=== PATIENT | female | born 2000 | race Two or more races ===

== ENCOUNTER 2020-07-05 18:36 | Emergency (ER) | payer MEDICAID, SELFPAY ==
--- NOTE | ~2020-07-05 | XR_ITS ---
EXAMINATION: XR HAND, RIGHT CLINICAL INFORMATION: Right hand pain after punching. COMPARISON: None TECHNIQUE: PA, lateral, and oblique views of the right hand. FINDINGS: No displaced fracture. No dislocation. Normal carpal alignment. No joint space narrowing or marginal osteophytes. No osseous erosion. No abnormal soft tissue calcification. XR/XR hand RT min 3V IMPRESSION: No displaced fracture.
[2020-07-05 18:52] VITALS: BP 109/70; PULSE 90; RESP 16; TEMP 37.3; O2SAT 100; BMI 25.8
--- NOTE | 2020-07-05 19:32 | ED_ITS ---
HPI - Extremity Injury (Upper) General Chief Complaint: Wound/Laceration Stated Complaint: hand lac Time Seen by Provider: 07/05/20 19:02 Source: patient Mode of arrival: ambulatory History of Present Illness HPI narrative: Punch manner are frustration resulting in pain to the dorsum of the hand and states abrasion/laceration to the palmar aspect. Unsure of last tetanus vaccination. complaint: injury to: right Onset (ago): minute(s) Other Extremity Injury: right: hand Handedness: right Place: home Severity: mild Severity scale (1-10): 5 Relieving factors: rest Context: direct blow and laceration Associated symptoms: denies other symptoms Treatments prior to arrival: bandage Related Data Allergies Allergy/AdvReac Type Severity Reaction Status Date / Time No Known Allergies Allergy Verified 07/05/20 19:07 [No Known Allergies*] Review of Systems Review of Systems: Constitutional: No Weight loss, No Fever, No Chills, No Night Sweats, No Fatigue, No Malaise ENT/Mouth: No Hearing loss, No Ear Pain, No Nasal Congestion, No Sinus Pain, No Hoarseness, No sore throat, No Rhinorrhea, No Swallowing Difficulty Eyes: Negative Cardiovascular: Negative Respiratory: Negative Gastrointestinal: Negative Genitourinary: Negative Musculoskeletal: No joint pain, No Myalgias, No Joint Swelling , as noted per HPI Skin: No Skin Lesions, No rash Neuro: No Weakness, No Numbness, No Paresthesias, No Loss of Consciousness, No Dizziness, No Headache Psych: No Social Issues Heme/Lymph: No Bruising, No Bleeding,No Lymphadenopathy Endocrine: Negative [facility] Past Medical History Medical History No known health problems Social History Social History Smoking Status: Never smoker Use of substances other than those prescribed or required for medical reasons: Yes Substance Use Type: Marijuana Advance Directives: No Advance Directives Information Provided: No Physical Exam Vital Signs: Vital Signs: Last Vital Signs Temp 99.1 F 07/05/20 18:52 Pulse 90 07/05/20 18:52 Resp 16 07/05/20 18:52 BP 109/70 07/05/20 18:52 Pulse Ox 100 07/05/20 18:52 Body Mass Index 25.8 Reviewed Const: General: cooperative and healthy appearing; No acute distress or intoxicated appearing Nutritional Appearance: average body habitus Orientation/consciousness: patient oriented x3 HENMT: Head: Yes normal to inspection Ears: hearing grossly normal bilaterally Eyes: General: appearance normal, both eyes and all related structures Visual Salcido: normal visual salcido by confrontation Resp: Effort & Inspection: normal respiratory effort Auscultation: clear to auscultation bilaterally Cardio: Jugular venous distension: no JVD Rhythm: regular rhythm Heart sounds: S1 normal heart sound present and S2 normal heart sound present GI: Inspection: Yes normal to inspection : General: Yes no CVA tenderness Back/Spine/Pelvis: Back: no CVA tenderness Skin: General skin exam: no rashes or lesions noted Neuro: General: patient oriented x3 Extrem: General: Yes normal to inspection Hand/finger images: 1. 0.5 cm superficial appearing abrasion like injury. No deep laceration or repairable area. Full range of motion able to make a fist h owever reports she has pain on the dorsum of the hand along the distal aspect of the 5th metacarpal. Otherwise neurovascular intact. Course Course Course Narrative: Given tetanus vaccination, Dermabond for abrasion after thoroughly being clean. X-ray without evidence of fracture will discharge home with supportive care, return, follow-up instructions. Comfortable plan. Stable for discharge. Discharge Plan Discharge Clinical Impression: Abrasion, Contusion of hand Patient Disposition: Home, Self-Care Instructions: Contusion in Adults (ED), Abrasion (ED), Diphtheria/Acellular Pertussis/Tetanus Booster Vaccine (Tdap) (By... Additional Instructions: Allow the skin glue to follow-up by self Your x-ray did not show any evidence of bone fracture There is no evidence of any foreign body Keep site clean and dry Cold compress Tylenol Motrin as needed for pain discomfort Return if any concerns or worsening symptoms otherwise follow up with her primary care doctor as discussed Thank you Referrals: Rachel Castillo DO [Primary Care Provider] - 1 week
== END 2020-07-05 20:09 | disposition home or self-care (01) ==
PROVIDERS: Emergency Provider Internal Medicine; PCP Pediatrics
DX: S60.511A Abrasion of right hand, initial encounter (principal); S60.221A Contusion of right hand, initial encounter; W22.09XA Striking against other stationary object, initial encounter; F12.90 Cannabis use, unspecified, uncomplicated; Y93.89 Activity, other specified; Y92.019 Unspecified place in single-family (private) house as the place of occurrence of the external cause; Y99.9 Unspecified external cause status
CPT/HCPCS: 12001; 73130; 90471; 90715; 99284

== ENCOUNTER 2020-11-18 09:02 | Emergency (ER) | payer MEDICAID, SELFPAY ==
[2020-11-18 09:37] VITALS: BP 114/77; PULSE 72; RESP 18; TEMP 37; O2SAT 99; BMI 25.7
--- NOTE | 2020-11-18 12:11 | ED_ITS ---
HPI - General Adult General Chief complaint: General Medical Stated complaint: rt breast pain Time Seen by Provider: 11/18/20 10:44 Source: patient Mode of arrival: ambulatory History of Present Illness HPI narrative: 19-year-old female with no significant past medical history presented to ED complaining of right-sided breast lumps x a couple days. Reports areas are painful. Denies nipple drainage, skin changes, erythema, fever. LMP October 30. Onset (ago): day(s) Related Data Allergies Allergy/AdvReac Type Severity Reaction Status Date / Time No Known Allergies Allergy Verified 07/05/20 19:07 [No Known Allergies*] Review of Systems Review of Systems: Constitutional: No Fever, No Chills Cardiovascular: No Chest Pain, No SOB Respiratory: No Cough Breast: + painful lumps, no discharge, no skin changes Gastrointestinal: No Nausea, No Vomiting, No Abdominal pain Musculoskeletal: No joint pain, No Myalgias, No Joint Swelling Skin: No Skin Lesions, No rash Yes all other systems are reviewed and are negative PMFSH Past Medical History Attestation statement: The following information was validated with the patient. Medical History No known health problems Social History Social History Substance Use Type: Marijuana Advance Directives: No Advance Directives Information Provided: No Patient : No Physical Exam Vital Signs: Vital Signs: Last Vital Signs Temp 98.6 F 11/18/20 09:37 Pulse 72 11/18/20 09:37 Resp 18 11/18/20 09:37 BP 114/77 11/18/20 09:37 Pulse Ox 99 11/18/20 09:37 Body Mass Index 25.7 Const: General: cooperative and healthy appearing Orientation/consciousness: patient oriented x3 Limitations: no limitations HENMT: Head: Yes normal to inspection Ears: hearing grossly normal bilaterally General nose exam: Normal external nose present Face and sinus: Yes normal facial exam Eyes: General: appearance normal, both eyes and all related structures EOM: EOMs intact bilaterally Neck: Neck: Yes normal visual inspection Chest: Other: Right breast: + small mobile hard breast lump at 1o'clock region and beneath nipple. +ttp. No fluctuance or induration No skin changes, no nipple discharge, no erythema/cellulitis, no appreciable lymphadenopathy Chest palpation & inspection: no crepitus and tenderness Breast/axilla inspection: normal inspection of the breasts Breast/axilla p alpation: no axillary lymphadenopathy Resp: Effort & Inspection: normal respiratory effort and no respiratory distress Cardio: Rate: regular rate Skin: Rashes: no rashes Wounds: no wounds Neuro: General: patient oriented x3 Gait exam (Neuro): Normal gait present Extrem: General: Yes normal to inspection Medical Decision Making MDM Narrative Medical decision making narrative: 19-year-old female with no significant past medical history presented to ED complaining of right-sided breast lumps x a couple days. On exam vital signs stable, NAD/well-appearing, physical exam as above. Concern for fibroadenoma vs cyst. Low concern for abscess. Rule out Discussed with patient she needs outpatient ultrasound or MRI/OBGYN follow-up Lab Data Labs: Lab Results 11/18/20 Range/Units 12:08 Urine Test NEGATIVE (NEGATIVE) Discharge Plan Discharge Clinical Impression: Breast lump Patient Disposition: Home, Self-Care Instructions: Breast Mass (ED) Additional Instructions: Your test was negative today in the ED It is important for you to follow-up with a OBGYN/establish care with an OBGYN You likely need a breast ultrasound Call the monitor and storage bin tender to make a appointment If her symptoms persist or worsen, lungs are growing, you have skin changes, redness, drainage from the nipple, fever please return to the ED Referrals: Matthew James MD [Physician] - 2 days Stand Alone Forms: Work/School Release
[2020-11-18 12:22] LABS: UPreg QC Valid YES; Urine Pregnancy NEGATIVE (NEGATIVE)
== END 2020-11-18 12:51 | disposition home or self-care (01) ==
PROVIDERS: Physician Assistant; Emergency Provider Emergency Medicine
DX: N64.4 Mastodynia (principal)
CPT/HCPCS: 81025; 99283

== ENCOUNTER 2020-11-27 14:46 | Outpatient (REF) | payer MEDICAID, SELFPAY ==
--- NOTE | ~2020-11-27 | US_ITS ---
EXAMINATION: US DIAGNOSTIC ULTRASOUND BREAST, RIGHT CLINICAL INFORMATION: Right breast lumps 1 o'clock and 8 o'clock locations. COMPARISON: None. TECHNIQUE: Ultrasound of the breast is performed with real-time tenorio-scale imaging and color Doppler. FINDINGS: A single lesion is identified at the 2 o'clock position, 12 cm from nipple, measuring approximately 2.6 x 1.6 x 2.1 cm in size. It is well circumscribed and hypoechoic with some mild posterior distal sound enhancement and no internal vascularity. This has the appearance of a fibroadenoma. Recommend ultrasound-guided biopsy. The above was discussed with the patient at time of study. The [facility] linen attendant called the referring provider's office with the above recommendation. US/US breast RT limited IMPRESSION: Right breast probable fibroadenoma for which ultrasound-guided biopsy is recommended. ASSESSMENT: BI-RADS 4: Suspicious (subcategory 4A: Low suspicion for malignancy). RECOMMENDATION: Ultrasound-guided right breast biopsy.
== END 2020-11-27 14:47 | disposition home or self-care (01) ==
LOC: HO.MAMMO 14:46
PROVIDERS: Visit Provider Registered Nurse
DX: N63.12 Unspecified lump in the right breast, upper inner quadrant (principal); N63.13 Unspecified lump in the right breast, lower outer quadrant
CPT/HCPCS: 76642

== ENCOUNTER 2020-12-09 09:46 | Outpatient (REF) | payer MEDICAID, SELFPAY ==
--- NOTE | ~2020-12-09 | US_ITS ---
EXAMINATION: ULTRASOUND GUIDED CORE BIOPSY BREAST, RIGHT POST PROCEDURE DIGITAL MAMMOGRAM, RIGHT CLINICAL INFORMATION: 20-year-old with circumscribed dominant mass 2:00 right breast 12 cm from nipple, both fibroadenoma. COMPARISON: Targeted right breast ultrasound 11/27/2020. FINDINGS: Proper informed consent is obtained from the patient after discussion of the procedure, potential risks and complications, and alternatives. Patient was given an opportunity for questions. The patient appeared to understand. The patient consented to the procedure and signed the consent form. GUIDANCE: Ultrasound-guided; aseptic technique. LESION: Circumscribed mass 3:00 right breast 12 cm from nipple measuring 2.6 cm, probable fibroadenoma. APPROACH: Oblique caudal cranial. ANESTHESIA: 10 mL 1% lidocaine. DERMATOTOMY: Single skin olga dermatotomy performed. NEEDLE: 14-gauge Achieve core biopsy device with 13.5-gauge co-axial guide needle. CORES: 5. CLIP: HydroMARK; shape: butterfly. The blunting of the clip marker is visualized during real-time ultrasound, placed within the mass. Postprocedure mammography not performed in this 20-year-old. The patient tolerated the procedure well. No immediate complications. Home instructions reviewed with the patient. Final pathology results are pending. US/US breast ndl core biopsy RT IMPRESSION: 1. Status post ultrasound-guided core biopsy right breast. 2. Clip placed: HydroMARK; shape: butterfly. 3. Pathology pending. An addendum report will be issued.
== END 2020-12-09 09:47 | disposition home or self-care (01) ==
LOC: HO.MAMMO 09:46
PROVIDERS: Visit Provider Surgery
DX: R92.8 Other abnormal and inconclusive findings on diagnostic imaging of breast (principal); N63.12 Unspecified lump in the right breast, upper inner quadrant
CPT/HCPCS: 19083; 88305; 99202

== ENCOUNTER → 2020-12-12 08:46 | Outpatient (BNVA) | payer MEDICAID, SELFPAY | PROVIDERS: PCP Registered Nurse; Referring Provider Registered Nurse; Visit Provider Surgery | DX: D24.1 Benign neoplasm of right breast (principal) | CPT/HCPCS: 99212 ==

== ENCOUNTER 2021-01-06 08:20 | Outpatient (REF) | payer MEDICAID, SELFPAY ==
[2021-01-06 10:50] LABS: HCG Quantitative 97837 mIU/mL
== END 2021-01-06 08:21 | disposition home or self-care (01) ==
LOC: HO.LAB 08:20
PROVIDERS: PCP Registered Nurse; Visit Provider Advanced Practice Midwife
DX: N92.6 Irregular menstruation, unspecified (principal); R11.2 Nausea with vomiting, unspecified
CPT/HCPCS: 36415; 81025; 84702; 99202

== ENCOUNTER 2021-01-16 08:15 | Outpatient (REF) | payer MEDICAID, SELFPAY ==
--- NOTE | ~2021-01-16 | US_ITS ---
EXAMINATION: OBSTETRICAL ULTRASOUND, FIRST TRIMESTER HISTORY: A 20-year-old at 12.6 weeks of gestation NT screening COMPARISON: 12/09/2020 TECHNIQUE: Real time transabdominal imaging with color and M-mode Doppler. FINDINGS: A single, live IUP CRL of 46.9 mm c/w 11.4wks is noted. Heart Rate: 167 beats per minute. Normal yolk sac seen. NT was 1.22.mm. NB Present The embryo appears sonographically wnl for this GA. Both maternal ovaries are seen and appear normal. GESTATIONAL AGE: 1. Established GA: 12.6 wks 2. GA from AUA: 11.4 wks ESTIMATED DATE OF DELIVERY: 1. Established TERRY: 07/25/2021 2. TERRY from AUA: 08/03/2021 US/US OB 1T nuc measure IMPRESSION: 1. A single live IUP 2. Size less than dates, CRL is consistent with 11.4 weeks of gestation. 3. Adjust TERRY to 08/03/2021 based on today's examination 4. Normal NT MFM Consultation: I advised her that the best TERRY appears to be 08/03/2021 based on today's examination. I reviewed the ultrasound findings along with significance of NT measurement. The NT of less than 3mm is generally reassuring. However, the sensitivity for T21 detection is only 60%. I reviewed the availability of serum aneuploidy screening which includes cell-free DNA and placental protein based tests. I discussed the sensitivity, false-positive rate, and other limitations associated with each test. I also reviewed the availability of invasive diagnostic tests that are associated small but definite risk of miscarriage. We also reviewed the differences between screening tests and diagnostic tests. After our discussion, she opted for the First trimester screening that is based on cell-free DNA or non-invasive testing (NIPT). The result will be faxed to your office in approximately 7 days. A follow up at 18 weeks for survey has been scheduled. Thank you very much for this referral. Total time 30 minutes. The time spent was devoted to counseling the patient about the disease and diagnosis, coordinating care including reviewing her records, pertinent lab data and studies, as well as discussing diagnostic evaluation and workup, plan therapeutic interventions and future disposition of care. This includes any additional research needed to obtain further information in formulating the plan of care of this patient. This note was generated with a voice recognition program. Please excuse any errors which may have been overlooked during my review of this note. Sometimes these errors may affect the content or meaning of a given sentence.
== END 2021-01-16 08:16 | disposition home or self-care (01) ==
LOC: HO.US 08:15
PROVIDERS: PCP Registered Nurse; Visit Provider Advanced Practice Midwife
DX: N92.6 Irregular menstruation, unspecified (principal)
CPT/HCPCS: 76813

== ENCOUNTER → 2021-01-22 09:49 | Outpatient (BNVA) | payer MEDICAID, SELFPAY | PROVIDERS: PCP Registered Nurse; Visit Provider Advanced Practice Midwife | DX: O26.891 Other specified pregnancy related conditions, first trimester (principal); D24.1 Benign neoplasm of right breast; O99.321 Drug use complicating pregnancy, first trimester; F12.20 Cannabis dependence, uncomplicated; Z3A.12 12 weeks gestation of pregnancy; Z79.899 Other long term (current) drug therapy | CPT/HCPCS: 99212 ==

== ENCOUNTER 2021-02-05 10:48 | Outpatient (REF) | payer MEDICAID, SELFPAY ==
[2021-02-05 11:53] LABS: Hemoglobin 10.8 g/dl (12.0-16.0); Mean Corpuscular HGB Conc 33.8 g/dl (31.0-35.0); Mean Corpuscular Hemoglobin 28.3 pg (27.0-33.0); Mean Corpuscular Volume 83.8 fL (80-98); Mean Platelet Volume 9.5 fL (9.4-12.3); Platelet Count 271 X10*3/uL (160-400); Red Blood Count 3.82 X10*6/uL (4.20-5.50); Red Cell Distribution Width 12.6 % (11.0-16.0); White Blood Count 9.5 X10*3/uL (4.8-10.8)
[2021-02-05 12:32] LABS: HIV AB/AG Nonreactive (Nonreactive); HIV Num 1 0.06 S/CO (0.00-0.99); ~HepC Num1 0.05 S/CO (0.00-0.79); ~Hepatitis C Antibody Nonreactive (Nonreactive)
[2021-02-05 12:34] LABS: HBsAGNum1 0.11 S/CO (0.00-0.99); Hepatitis B Surface Antigen Negative (Negative)
[2021-02-05 12:45] LABS: Amphetamine Screen Urine Not Detected (Not Detect); Barbiturates, Urine Not Detected (Not Detect); Benzodiazepines Screen Urine Not Detected (Not Detect); Cannabinoid Screen Urine Not Detected (Not Detect); Cocaine Screen Urine Not Detected (Not Detect); Fentanyl, urine Not Detected (Not Detect); Opiate Screen Urine Not Detected (Not Detect); Phencyclidine Screen Urine Not Detected (Not Detect)
[2021-02-05 13:15] LABS: Sickle Cell Scr NEGATIVE (NEGATIVE)
[2021-02-06 04:06] LABS: Syphilis Screen Nonreactive (Nonreactive)
[2021-02-06 08:26] LABS: Rubella IgG Antibody 3.75 Index; Varicella IgG Antibody <135.00 index
== END 2021-02-05 10:49 | disposition home or self-care (01) ==
LOC: HO.LAB 10:48
PROVIDERS: PCP Registered Nurse; Visit Provider Advanced Practice Midwife
DX: Z34.90 Encounter for supervision of normal pregnancy, unspecified, unspecified trimester (principal)
CPT/HCPCS: 80307; 85027; 85660; 86762; 86780; 86787; 86803; 86850; 86900; 86901; 87086; 87340; 87389

== ENCOUNTER 2021-02-10 11:27 | Outpatient (REF) | payer MEDICAID, SELFPAY ==
[2021-02-11 13:18] LABS: BV Int Neg Control Negative (Negative); BV Int Pos Control Positive (Positive)
[2021-02-11 13:56] LABS: CT PCR NOT DETECTED (Not Detect.); NG PCR NOT DETECTED (Not Detect.)
== END 2021-02-10 11:28 | disposition home or self-care (01) ==
LOC: HO.LAB 11:27
PROVIDERS: Visit Provider Advanced Practice Midwife
DX: O26.892 Other specified pregnancy related conditions, second trimester (principal); D24.1 Benign neoplasm of right breast; Z3A.15 15 weeks gestation of pregnancy
CPT/HCPCS: 87480; 87491; 87510; 87591; 87660; 88142; 99212

== ENCOUNTER 2021-03-06 08:38 | Outpatient (REF) | payer MEDICAID, SELFPAY ==
--- NOTE | ~2021-03-06 | US_ITS ---
EXAMINATION: US OBSTETRICAL CLINICAL INFORMATION: A 20-year-old at 18.4 weeks of gestation Screening for anomaly COMPARISON: 01/16/2021 TECHNIQUE: Real-time transabdominal ultrasound was performed using C1-5 megahertz transducer. FINDINGS: A single, active, fetus is seen in breech presentation. The placenta is anterior without previa, and the amniotic fluid volume is wnl. MEASUREMENTS: 1. Biparietal Diameter: 4.0 cm; 18.2 wks 2. Occipital Frontal Diameter: 5.3 cm 3. Head Circumference: 15.2 cm; 18.2 wks 4. Abdominal Circumference: 13.4 cm; 19.0 wks 5. Femur Length: 2.8 cm; 18.4 wks 6. Humerus Length: 2.7 cm; 18.4 wks 7. Tibia Length: 2.2 cm; 18.0 wks 8. Lateral ventricle: 0.6 cm 9. Cerebellum: 1.9 cm; 19.3 wks 10. Cisterna Magna: 0.3 cm 11. Nuchal Fold: 3.5 mm 12. Heart Rate: 158 beats per minute Rt ovary: normal Lt ovary: normal Cervical length 4.0 cm on T/A. GESTATIONAL AGE: 1. Established GA: 18.4 wks 2. GA from AUA: 18.4 wks ESTIMATED DATE OF DELIVERY: 1. Established TERRY: 08/03/2021 2. TERRY from AUA: 08/03/2021 ANATOMY: The visualized anatomy includes but not limited to: 1. Cranium: Normal 2. Intracranial anatomy: cavum septum pellucidi, lateral ventricles, choroid plexus, cerebellum, posterior fossa, third and fourth ventricles. 3. face: orbits, lip/palate, profile, nasal bone 4. Heart: four-chamber view of the heart, ventricular septum, foramen ovale, pulmonary vein, left and right outflow tracts, three-vessel view, 3 vessel trachea view, aortic and ductal arches, situs.. 5. Diaphragm: Normal 6. Abdominal wall: Normal 7. Cord Insertion: Normal 8. Spine: Cervical, thoracic, lumbar, sacral. 9. Stomach: Normal size and shape 10. Right Kidney: Normal 11. Left Kidney: Normal 12. 3 vessel cord: Normal 13. Upper extremity: Open hands, fifth digit. 14. Lower extremity: Tibia, fibula, bilateral feet. 15. Bladder: Normal 16. Genitalia: Male, patient aware US/US OB /maternal detail IMPRESSION: 1. Single, living, intrauterine with appropriate biometry. 2. Normal survey DISCUSSION: I reviewed today's ultrasound findings. We discussed the limitations of ultrasound in diagnosing aneuploidy and other congenital abnormalities. I reviewed the differences between screening test and diagnostic test. Amniocentesis was discussed and declined. She was informed that the baseline incidence of congenital abnormalities is approximately 3-5%. Not all these conditions are diagnosable in utero. RECOMMENDATIONS: 1. Follow-up when necessary Thank you for allowing me to participate in her care. Total time 20 minutes. The time spent was devoted to counseling the patient about the disease and diagnosis, coordinating care including reviewing her records, pertinent lab data and studies, as well as discussing diagnostic evaluation and workup, plan therapeutic interventions and future disposition of care. This includes any additional research needed to obtain further information in formulating the plan of care of this patient. This note was generated with a voice recognition program. Please excuse any errors which may have been overlooked during my review of this note. Sometimes these errors may affect the content or meaning of a given sentence.
== END 2021-03-06 08:39 | disposition home or self-care (01) ==
LOC: HO.US 08:38
PROVIDERS: Visit Provider Advanced Practice Midwife
DX: O35.9XX0 Maternal care for (suspected) fetal abnormality and damage, unspecified, not applicable or unspecified (principal); Z3A.18 18 weeks gestation of pregnancy
CPT/HCPCS: 76811

== ENCOUNTER → 2021-03-10 09:17 | Outpatient (BNVA) | payer MEDICAID, SELFPAY | PROVIDERS: Visit Provider Advanced Practice Midwife | DX: O99.012 Anemia complicating pregnancy, second trimester (principal); O26.892 Other specified pregnancy related conditions, second trimester; Z3A.19 19 weeks gestation of pregnancy; Z67.91 Unspecified blood type, Rh negative | CPT/HCPCS: 81003; 99212 ==

== ENCOUNTER → 2021-04-07 08:51 | Outpatient (BNVA) | payer MEDICAID, SELFPAY | PROVIDERS: Visit Provider Advanced Practice Midwife | DX: O99.012 Anemia complicating pregnancy, second trimester (principal); O26.892 Other specified pregnancy related conditions, second trimester; Z3A.23 23 weeks gestation of pregnancy | CPT/HCPCS: 81003; 99212 ==

== ENCOUNTER → 2021-05-05 09:21 | Outpatient (BNVA) | payer MEDICAID, SELFPAY | PROVIDERS: Visit Provider Advanced Practice Midwife | DX: O26.892 Other specified pregnancy related conditions, second trimester (principal); Z67.91 Unspecified blood type, Rh negative; O99.012 Anemia complicating pregnancy, second trimester; Z3A.27 27 weeks gestation of pregnancy | CPT/HCPCS: 81003; 99212 ==

== ENCOUNTER 2021-05-06 08:50 | Outpatient (REF) | payer MEDICAID, SELFPAY ==
[2021-05-06 11:05] LABS: Hematocrit 32.9 % (37.0-47.0); Hemoglobin 10.6 g/dl (12.0-16.0); Mean Corpuscular HGB Conc 32.2 g/dl (31.0-35.0); Mean Corpuscular Hemoglobin 28.4 pg (27.0-33.0); Mean Corpuscular Volume 88.2 fL (80.0-98.0); Mean Platelet Volume 9.8 fL (9.4-12.3); Platelet Count 237 X10*3/uL (160-400); Red Blood Count 3.73 X10*6/uL (4.20-5.50); White Blood Count 8.4 X10*3/uL (4.8-10.8)
[2021-05-06 11:40] LABS: Glucose 1 Hour PP 50gm Dose 158 mg/dL (60-140)
[2021-05-06 12:02] LABS: Syphilis Screen Nonreactive (Nonreactive)
== END 2021-05-06 08:51 | disposition home or self-care (01) ==
LOC: HO.LAB 08:50
PROVIDERS: PCP Internal Medicine; Visit Provider Advanced Practice Midwife
DX: O99.019 Anemia complicating pregnancy, unspecified trimester (principal); D64.9 Anemia, unspecified; O26.899 Other specified pregnancy related conditions, unspecified trimester; Z67.91 Unspecified blood type, Rh negative
CPT/HCPCS: 36415; 85027; 86780; 86850; 96372

== ENCOUNTER 2021-05-08 07:46 | Outpatient (REF) | payer MEDICAID, SELFPAY ==
[2021-05-08 09:06] LABS: Glucose Fasting 88 mg/dL (60-99)
[2021-05-08 10:03] LABS: Glucose 1 Hour 189 mg/dL
[2021-05-08 11:01] LABS: Glucose 2 Hour 142 mg/dL
[2021-05-08 12:42] LABS: Glucose 3 Hour 52 mg/dL
== END 2021-05-08 07:47 | disposition home or self-care (01) ==
LOC: HO.LAB 07:46
PROVIDERS: PCP Internal Medicine; Visit Provider Advanced Practice Midwife
DX: R73.09 Other abnormal glucose (principal)
CPT/HCPCS: 36415; 82951

== ENCOUNTER → 2021-05-21 08:43 | Outpatient (BNVA) | payer MEDICAID, SELFPAY | PROVIDERS: PCP Internal Medicine; Visit Provider Obstetrics & Gynecology | DX: O99.013 Anemia complicating pregnancy, third trimester (principal); D64.9 Anemia, unspecified; Z3A.29 29 weeks gestation of pregnancy; Z79.899 Other long term (current) drug therapy | CPT/HCPCS: 99212 ==

== ENCOUNTER → 2021-06-04 08:34 | Outpatient (BNVA) | payer MEDICAID, SELFPAY | PROVIDERS: PCP Internal Medicine; Visit Provider Advanced Practice Midwife | DX: Z34.03 Encounter for supervision of normal first pregnancy, third trimester (principal); Z3A.31 31 weeks gestation of pregnancy | CPT/HCPCS: 99212 ==

== ENCOUNTER → 2021-06-19 09:07 | Outpatient (BNVA) | payer MEDICAID, SELFPAY | PROVIDERS: PCP Internal Medicine; Visit Provider Advanced Practice Midwife | DX: Z34.03 Encounter for supervision of normal first pregnancy, third trimester (principal); Z3A.33 33 weeks gestation of pregnancy | CPT/HCPCS: 81003; 90471; 90715; 99212 ==

== ENCOUNTER 2021-07-08 08:54 | Outpatient (REF) | payer MEDICAID, SELFPAY ==
[2021-07-08 14:37] LABS: CT PCR NOT DETECTED (Not Detect.); NG PCR NOT DETECTED (Not Detect.)
== END 2021-07-08 08:55 | disposition home or self-care (01) ==
LOC: HO.LAB 08:54
PROVIDERS: PCP Internal Medicine; Visit Provider Advanced Practice Midwife
DX: Z34.93 Encounter for supervision of normal pregnancy, unspecified, third trimester (principal); Z3A.36 36 weeks gestation of pregnancy
CPT/HCPCS: 87081; 87491; 87591; 99212

== ENCOUNTER → 2021-07-14 11:15 | Outpatient (BNVA) | payer MEDICAID, SELFPAY | PROVIDERS: Visit Provider Advanced Practice Midwife | DX: Z34.03 Encounter for supervision of normal first pregnancy, third trimester (principal); Z3A.37 37 weeks gestation of pregnancy | CPT/HCPCS: 81003; 99212 ==

== ENCOUNTER → 2021-07-21 11:07 | Outpatient (BNVA) | payer MEDICAID, SELFPAY | PROVIDERS: Visit Provider Advanced Practice Midwife | DX: Z34.03 Encounter for supervision of normal first pregnancy, third trimester (principal); Z3A.38 38 weeks gestation of pregnancy | CPT/HCPCS: 81003; 99212 ==

== ENCOUNTER → 2021-07-28 11:33 | Outpatient (BNVA) | payer MEDICAID, SELFPAY | PROVIDERS: Visit Provider Advanced Practice Midwife | DX: O99.013 Anemia complicating pregnancy, third trimester (principal); D64.9 Anemia, unspecified; Z3A.39 39 weeks gestation of pregnancy; Z79.899 Other long term (current) drug therapy | CPT/HCPCS: 81003; 99212 ==

== ENCOUNTER 2022-01-27 07:30 | Emergency (ER) | payer MEDICAID, SELFPAY ==
[2022-01-27 07:39] VITALS: BP 112/57; PULSE 56; RESP 16; TEMP 36.3; O2SAT 99; BMI 30.9
--- NOTE | 2022-01-27 08:01 | ED_ITS ---
HPI - General Adult General Chief complaint: Abdominal Pain Stated complaint: stomach pain Time Seen by Provider: 01/27/22 08:01 Source: patient Mode of arrival: ambulatory Limitations: no limitations History of Present Illness HPI narrative: Patient is a 21 year old assigned female with no reported medical history presenting to the emergency department today with epigastric pain. Patient states that 2 days ago she ate takis and ever since then, has had epigastric pain. Patient states that she attempted to make herself throw up the chips and that seems to have made it worse. Patient denies any dizziness, lightheadedness, nausea, vomiting, fever, chills, blurry vision, double vision, loss of vision, chest pain, difficulty breathing, shortness of breath, back pain, night sweats, pain with urination, increased urinary frequency, increased urinary urgency, blood in her urine or stool, syncope or a near syncopal episode, recent trauma or falls, bowel incontinence, bladder incontinence, bowel retention, bladder retention, or any other complaints at this time. Onset (ago): day(s) (2) Location: abdomen Radiation: non-radiation Severity: mild Severity scale (1-10): 2 Quality: burning Pain Consistency: constant Relieving factors: none Exacerbating factors: none Associated symptoms: denies other symptoms Treatments prior to arrival: none Related Data Previous Rx's Medication Instructions Recorded vitamin with calcium 1 tab PO DAILY #30 tabs 01/06/21 no.72-iron 27 mg-folic acid 1 mg tablet ( Vitamins Plus Low Iron) ferrous sulfate 325 mg (65 mg 325 mg PO TID #180 tabs 05/06/21 iron) tablet omeprazole 40 mg capsule,delayed 40 mg PO DAILY #14 caps 01/27/22 release Allergies Allergy/AdvReac Type Severity Reaction Status Date / Time No Known Allergies Allergy Verified 07/28/21 11:34 [No Known Allergies*] Review of Systems Constitutional: Constitutional: Reports no additional constitutional complaints, Denies chills, Denies fever(s) and Denies night sweats Eyes: Eyes: Reports no additional eye complaints, Denies blurry vision, Denies change in vision, Denies diplopia, Denies eye discharge, Denies loss of vision and Denies eye pain ENT: Denies dizziness Cardiovascular: Cardiovascular: Reports no additional cardiovascular complaints, Denies chest pain, Denies lightheadedness, Denies Loss of Consciousness and Denies dyspnea Respiratory: Respiratory: Reports no additional respiratory complaints and Denies dyspnea Gastrointestinal: Gastrointestinal: Reports no additional gastrointestinal complaints, Reports abdominal pain (epigastric pain), Denies melena, Denies hematochezia, Denies change in bowel habits and Denies change in stool character Genitourinary: Genitourinary: Denies hematuria, Denies urinary frequency, Denies dysuria, Denies urinary incontinence, Denies urinary hesitancy and Denies urinary urgency Musculoskeletal: Musculoskeletal: Reports no additional musculoskeletal complaints, Denies numbness and Denies tingling Neurologic: Denies dizziness, Denies loss of vision, Denies numbness and Denies tingling Psychiatric: Psychiatric: Reports no additional psychiatric complaints Endocrine: Endocrine: Reports no additional endocrine complaints Hematologic/Lymphatic: Hematologic/Lymphatic: Reports no additional hematologic/lymphatic complaints Allergic/Immunologic: Allergic/Immunologic: Reports no additional allergic/immunologic complaints PMFSH Past Medical History Attestation statement: The following information was validated with the patient. 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 No known health problems Family History Family History Maternal Aunt Status post breast lumpectomy Social History Social History Household Members: Family Alcohol intake: never Patient Tobacco Use Status: Never used Tobacco Substance Use Type: Marijuana Advance Directives: No Advance Directives Information Provided: No Sexual orientation: Straight/Heterosexual Gender identity: Female Physical Exam ED Vital Signs: Vital Signs - 24 hr 01/27/22 07:39 Temperature 97.4 F Pulse Rate 56 Respiratory Rate 16 Blood Pressure 112/57 L Pulse Oximetry 99 Oxygen Delivery Method Room Air BMI result Body Mass Index 30.9 Const General: cooperative, no acute distress, alert and awake Nutritional Appearance: well nourished Orientation/consciousness: patient oriented x3 Limitations: no limitations HENMT Head: Yes normal to inspection and Yes atraumatic Ears: hearing grossly normal bilaterally and external ears normal General nose exam: Normal external nose present, no nasal discharge noted and no epistaxis Face and sinus: Yes normal facial exam, No abrasion and No laceration Mouth: Normal oral and palatal mucosa present, no drooling and no muffled voice Eyes General: appearance normal, both eyes and all related structures Periorbital: periorbital findings normal Eyelids: Yes eyelids normal Conjunctivae: conjunctivae normal Pupils: Equal, round and reactive pupils present EOM: EOMs intact bilaterally Neck Neck: Yes normal visual inspection, Yes full ROM and Yes no lymphadenopathy Chest Chest palpation & inspection: normal inspection of the chest Resp Effort & Inspection: normal respiratory effort and able to speak in complete sentences Auscultation: clear to auscultation bilaterally Cardio Rate: regular rate Rhythm: regular rhythm GI Inspection: Yes normal to inspection Palpation (GI): Soft to palpation, not firm, nontender and no guarding Neuro General: patient oriented x3 and moves all extremities Cranial nerves: Yes Equal, round and reactive pupils present Cognition (Neuro): normal cognition Motor exam (neuro): 5/5 motor strength present throughout Sensory Exam: Normal double simultaneous stimulation for sensation Coordination: [id number] test normal Extrem General: Yes normal to inspection, Yes full ROM and Yes capillary refill normal Psych Appearance: grossly normal Mental Status: mental status grossly normal Affect: normal affect Attitude: cooperative Thought process: Normal thought process present Thought content: Normal thought content present Insight: Good insight present (Psych) Medical Decision Making MDM Narrative Medical decision making narrative: Patient is a 21 year old assigned female with no reported medical history presenting to the emergency department today with epigastric pain. Patient's physical exam was unremarkable. Patient's current clinical presentation is most consistent with GERD. I explained my physical exam findings to the patient. I answered all questions asked by the patient. Patient received PO Maalox and Omeprazole which she stated helped her pain significantly. I stressed the importance of the patient avoid spicy foods and not eating right before bed. I stressed the importance of the patient taking her medication as prescribed. I stressed the importance of the patient following up with her primary care provider. I stressed the importance of the patient returning to the emergency department immediately if her symptoms were to worsen or if she were to develop any dizziness, shortness of breath, difficulty breathing, chest pain, blurry vision, loss of vision, nausea, vomiting, abdominal pain, fever, chills, back pain, or any other complaints. Patient verbalized agreement and understanding with this treatment plan and discharge. Medical Records Medical records reviewed: Yes I reviewed the patient's medical records. Discharge Plan Discharge Clinical Impression: Gastroesophageal reflux disease Patient Disposition: Home, Self-Care Instructions: Gastroesophageal Reflux Disease (ED) Additional Instructions: Follow up with your primary care provider. Return to the emergency department immediately if your symptoms worsen or if you develop any dizziness, shortness of breath, difficulty breathing, chest pain, blurry vision, loss of vision, nausea, vomiting, abdominal pain, fever, chills, back pain, or any other complaints. Prescriptions: New omeprazole 40 mg capsule,delayed release(DR/EC) 40 mg PO DAILY Qty: 14 0RF No Action ferrous sulfate 325 mg (65 mg iron) tablet 325 mg PO TID Qty: 180 3RF Rx Instructions: take with vitamin-C rich juice and diet to prevent constipation. Vitamin Plus Low Iron 27 mg iron- 1 mg tablet 1 tab PO DAILY Qty: 30 11RF Referrals: [place] [Primary Care Provider[facility] - Stand Alone Forms: Work/School Release Interventions: ED Discharge Assessment Last Done: 01/27/22 08:27 Discharge Date/Time: 01/27/22 08:30 Print Language: Romansh
[2022-01-27] MEDS: Omeprazole 40 MG CAPSULE.DR PO (08:12)
[2022-01-27] MEDS: Magnesium Hydrox/Alum Hydrox 30 ML ORAL.SUSP 15 ML PO (08:12)
== END 2022-01-27 08:30 | disposition home or self-care (01) ==
PROVIDERS: Emergency Provider Emergency Medicine
DX: K21.9 Gastro-esophageal reflux disease without esophagitis (principal); Z79.899 Other long term (current) drug therapy
CPT/HCPCS: 99282; 99283

== ENCOUNTER 2022-02-13 08:37 | Inpatient (IN) | payer MEDICAID, SELFPAY ==
[2022-02-13] VITALS (7 sets, daily range): BP systolic 108–121; BP diastolic 42–75; PULSE 56–66; RESP 12–18; TEMP 36.5–37.1; O2SAT 98–100; BMI 30.9
--- NOTE | ~2022-02-13 | FL_ITS ---
EXAMINATION: XR FL WITH IMAGES IN OR CLINICAL INFORMATION: Laparoscopic cholecystectomy. COMPARISON: Ultrasound abdomen 02/13/2022. TECHNIQUE: Fluoroscopy performed by Dr. Geena Wilder. Fluoroscopy time: 2.3 minutes. Cumulative Dose: 35.6 mGy. DAP: 9.72 Gycm2. Images: 3. FINDINGS: There is a catheter in the cystic duct which fills common bile duct with obstruction distally and no filling of small bowel. The meniscus is seen distally which could represent an obstructing stone. FL/FL guidance in OR IMPRESSION: Fluoroscopy and spot films provided during laparoscopic cholecystectomy.
--- NOTE | ~2022-02-13 | FL_ITS ---
EXAMINATION: XR FLUOROSCOPY WITH IMAGES CLINICAL INFORMATION: ERCP performed. COMPARISON: MRCP from 02/15/2022 TECHNIQUE: Fluoroscopy performed by Dr. Starks. Fluoroscopy time: 220 seconds. Cumulative Dose: 86.77 mGy. Images: 45. FL/FL guidance in OR FINDINGS AND IMPRESSION: This report is provided to document use of fluoroscopic imaging equipment during ERCP in this patient who is status post cholecystectomy. The images demonstrate placement of an endoscope, cannulation of the common duct and right hepatic duct, retrograde injection of iodinated contrast, and apparent balloon sweeps of the common duct. Please refer to the procedure report. There is no contrast extravasation from the common duct.
--- NOTE | ~2022-02-13 | US_ITS ---
EXAMINATION: US ABDOMEN LIMITED CLINICAL INFORMATION: Right upper quadrant pain. COMPARISON: CT 03/15/2017 TECHNIQUE: Real-time imaging of the right upper quadrant abdominal viscera. FINDINGS: PANCREAS: Normal. LIVER: Diffuse increase in hepatic echotexture suggesting hepatic steatosis. The liver is normal in size. The liver contour is normal. No focal hepatic lesion. There is no intrahepatic biliary duct dilatation seen. GALLBLADDER: Multiple small layering gallstones. Positive sonographic Zaldivar's sign. No wall thickening or pericholecystic fluid. COMMON BILE DUCT: Normal in caliber measuring 0.5 cm in diameter. No definite choledocholithiasis. Distal common duct not well seen. RIGHT KIDNEY: Normal. No hydronephrosis. No renal calculi or focal parenchymal lesions. The kidney measures 9.5 cm in maximum dimension. FREE FLUID: None. US/US abdomen limited IMPRESSION: Cholelithiasis with positive sonographic Zaldivar's sign. No free fluid or gallbladder wall thickening. Clinical correlation required to exclude acute cholecystitis.
--- NOTE | ~2022-02-13 | MR_ITS ---
EXAMINATION: MR CHOLANGIOPANCREATOGRAPHY CLINICAL INFORMATION: pt with elevated LFts mild dilated cbd , COMPARISON: 02/15/2022 intraoperative fluoroscopy 03/15/2017 CT scan of the abdomen and pelvis TECHNIQUE: Multiple routine MRI sequences through the abdomen were obtained. Heavily T2-weighted images were performed utilizing a dedicated MRCP technique. Contrast was not utilized for the study. FINDINGS: Biliary system: The common bile duct is normal in course and caliber measuring up to 0.7 cm with no evidence for intra-or extrahepatic biliary ductal dilatation. No intraluminal filling defects are appreciated. Gallbladder: Surgically absent with surgical drain in the right upper quadrant. Liver parenchyma is homogeneous in signal with no focal hepatic lesion appreciated. Pancreas: The pancreatic duct is normal in course and caliber with no evidence for pancreatic ductal obstruction. There is homogeneous signal to the pancreas with no focal suspicious pancreatic lesion. Tiny bilateral pleural effusions and bibasilar atelectasis No visualized abnormalities are seen in the kidneys, adrenals, or spleen. MR/MR MRCP IMPRESSION: Status post cholecystectomy. No suspicious collection. No biliary ductal dilatation or intraluminal filling defect within the common bile duct
--- NOTE | 2022-02-13 09:47 | ED_ITS ---
HPI - General Adult General Chief complaint: General Medical Stated complaint: CHEST AND BACK PAIN Time Seen by Provider: 02/13/22 09:27 Source: patient Mode of arrival: ambulatory Limitations: no limitations History of Present Illness HPI narrative: Patient is a 21-year-old female who presents to the emergency department for evaluation of epigastric pain. Patient states that she was seen here a couple of weeks ago for similar pain, was advised it was due to acid reflux and given a prescription for omeprazole. She states that she took that medication for about 2-3 days and then stopped. She states that since then she has had the pain intermittently. Pain most recently began again yesterday at night, reports for dinner she had chicken nuggets with ketchup. Pain is localized to the epigastric region and is described as a burning sensation. Denies fevers, chills, chest pain, shortness of breath, nausea, vomiting, lower abdominal pain, dysuria, urinary frequency/urgency/hesitancy, possibility of . Related Data Home Medications Medication Instructions Recorded Confirmed No Known Home Meds 02/13/22 02/13/22 Allergies Allergy/AdvReac Type Severity Reaction Status Date / Time No Known Allergies Allergy Verified 07/28/21 11:34 [No Known Allergies*] Review of Systems Review of Systems: Constitutional : No Weight loss, No Fever, No Chills ENT/Mouth :? No sore throat, No Rhinorrhea Eyes: No Swelling, No Redness Cardiovascular : No Chest Pain, No SOB, No Edema Respiratory : No Cough, No Sputum, No Wheezing Gastrointestinal : No Nausea, no Vomiting, no Diarrhea, positive abdominal pain, No Hematochezia, No Melena Genitourinary : No Dysuria, No Urinary Frequency, No Hematuria, No Urgency? Musculoskeletal : No joint pain, No Myalgias, No Joint Swelling Skin : No Skin Lesions, No rash Neuro : No Weakness, No Numbness, No Dizziness, No Headache Psych : No Anxiety/Panic, No Depression Heme/Lymph: No Bruising, No Lymphadenopathy Endocrine : No Polyuria, No Polydipsia Yes all other systems are reviewed and are negative [facility] Past Medical History Attestation statement: The following information was validated with the patient. 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 No known health problems Family History Family History Maternal Aunt Status post breast lumpectomy Social History Social History Household Members: Family Housing: Apartment Do you presently have visiting nurse or other home services: No Alcohol intake: never Patient Tobacco Use Status: Never used Tobacco Use of substances other than those prescribed or required for medical reasons: Yes Substance Use Type: Marijuana Substance Use Frequency: Daily Last Used Substance: Days (ago) Currently Displaying Signs/Symptoms of Drug Intoxication Withdrawal: No Have you been hit, kicked, punched, or otherwise hurt by someone within the past year? If so, by whom?: No Do you feel safe in your current relationship?: No Current Relationship Is there a partner from a previous relationship who is making you feel unsafe now?: No Are you made to feel afraid or neglected: No Advance Directives: No Advance Directives Information Provided: No Do you have thoughts of harming others: None Do you have a plan to hurt others: No Plan Recently lost weight without trying: No How much weight loss: Not applicable Eating poorly because of decreased appetite: No Nutrition screen score: 0 Nutrition Risks: No Nutritional Risk Patient : No : No Poor oral hygiene: No Sexual orientation: Straight/Heterosexual Gender identity: Female Physical Exam ED Vital Signs: Vital Signs - 24 hr 02/13/22 08:52 02/13/22 10:01 02/13/22 12:12 Temperature 98.3 F 98.1 F 97.7 F Pulse Rate 62 59 61 Respiratory Rate 18 12 12 Blood Pressure 108/42 L 108/62 117/61 Pulse Oximetry 98 99 100 Oxygen Delivery Method Room Air Room Air Room Air BMI result Body Mass Index 30.9 Vital signs have been reviewed as normal and appeared to be correct. Blood pressure normal.? Heart rate normal.? Respiration rate normal. Temperature normal.? Oxygen saturation normal. Appearance: Alert.?Oriented to person, place and time. No acute distress.?Normal affect. Eyes: Pupils equal, round and reactive to light.? ENT: Pharynx normal.?? Neck: Normal inspection.? Neck supple.?? CVS: Heart sounds normal. Normal heart rate and rhythm.? Pulses normal.?? Respiratory: No respiratory distress.? Lung sounds clear to auscultation bilaterally?? Abdomen: Soft with right upper quadrant and epigastric tenderness upon palpation, positive Zaldivar sign Normoactive bowel sounds. ? Skin: Skin warm and dry.? Normal skin color.? Normal skin turgor.?? Extremities: No lower extremity edema.? Neuro: Moves all extremities spontaneously. Sensation intact bilaterally. No focal neuro deficits. Ambulates with normal steady gait. Course Course Course Narrative: Patient is a 21-year-old female presenting to emergency department for evaluation of epigastric pain. Has had similar pain over the past few weeks, evaluated in the emergency department 01/27, diagnosed with GERD, given prescription for omeprazole which she took only for a couple of days. Pain has been recurrent intermittently. Typically worse at night while lying down or while sleeping. Abdominal exam significant for right upper quadrant and epigastric tenderness upon palpation. Will obtain CBC to evaluate for leukocytosis/ anemia, CMP and lipase to evaluate for abnormal electrolytes /abnormal renal function/ abnormal hepatic/biliary function, abdominal to sound evaluate for cholelithiasis, urine and Urinalysis. Patient to receive omeprazole p.o., and GI cocktail with Maalox/lidocaine viscous. Disposition pending results. Reevaluation(s) Reevaluation #1: CBC is overall unremarkable. Total bilirubin 2.5 and LFTs are notably elevated with AST 478 ALT 723 concerning for extrahepatic obstruction, possibly a passed stone, no prior labs available for comparison. Lipase is normal. Ultrasound reveals hepatic steatosis, cholelithiasis, no free fluid or gallbladder wall thickening. Patient to receive Zosyn IV. Spoke with malika Vidal Ra from general surgery, recommend hospital admission under surgical service. Patient updated on plan of care and is agreeable. Time: 11:43 Medical Decision Making Medical Records Medical records reviewed: Yes I reviewed the patient's medical records. Lab Data Lab results reviewed: Yes I reviewed the patient's lab results. Result diagrams: 02/13/22 09:51 02/13/22 09:51 Labs: Lab Results 02/13/22 02/13/22 02/13/22 Range/Units 09:51 09:51 10:23 WBC 4.6 L (4.8-10.8) X10*3/uL RBC 5.22 D (4.20-5.50) X10*6/uL Hgb 13.6 D (12.0-16.0) g/dl Hct 42.6 D (37.0-47.0) % MCV 81.6 (80.0-98.0) fL MCH 26.1 L (27.0-33.0) pg MCHC 31.9 (31.0-35.0) g/dl RDW 13.3 (11.0-16.0) % Plt Count 287 (160-400) X10*3/uL MPV 9.7 (9.4-12.3) fL Immature Gran % (Auto) 0.2 (0.0-0.4) % Neut % (Auto) 73.2 H (45-73) % Lymph % (Auto) 20.9 (20-40) % Logan % (Auto) 4.7 (2-11) % Eos % (Auto) 0.6 (0-4) % Baso % (Auto) 0.4 (0-2) % Lymph # (Auto) 1.0 L (1.2-4.9) X10*3/uL Logan # (Auto) 0.2 (0.1-1.2) X10*3/uL Eos # (Auto) 0.0 (0.0-0.4) X10*3/uL Baso # (Auto) 0.0 (0.0-0.2) X10*3/uL Abs Immat Gran (auto) 0.01 (0.00-0.03) X10*3/uL Absolute Neuts (auto) 3.4 (2.0-8.3) x10*3/uL Absolute Nucleated RBC 0.000 (0.0-0.012) X10*3/uL Nucleated RBC % (auto) 0.0 (0.0-0.2) /100WBC Sodium 138 (135-145) mmol/L Potassium 4.1 (3.3-5.1) mmol/L Chloride 105 (96-108) mmol/L Carbon Dioxide 23 (22-29) mmol/L Anion Gap 14 (12-20) BUN 7 L (9-16) mg/dL Creatinine 0.72 (0.5-1.4) mg/dL Estim Creat Clear Calc 126.7 Estimated GFR > 60 Random Glucose 117 H (60-115) mg/dL Calcium 9.5 (8.4-10.2) mg/dL Total Bilirubin 2.5 H (0.0-1.0) mg/dL AST 478 H (5-31) U/L ALT 723 H (0-31) U/L Alkaline Phosphatase 228 H (39-117) U/L Total Protein 7.6 (6.5-8.0) g/dL Albumin 4.6 (3.5-5.0) g/dL Lipase 15 (8-78) U/L Urine Color Dark Yellow Urine Appearance Cloudy Urine pH 8.0 (5.0-9.0) Ur Specific Gilman 1.015 (1.005-1.025) Urine Protein Negative (Neg-Trace) mg/dL Urine Glucose (UA) Negative (Negative) mg/dL Urine Ketones Negative (Negative) mg/dL Urine Blood Negative (Negative) Urine Nitrite Negative (Negative) Ur Leukocyte Esterase Small (1+) H (Negative) Urine RBC 0-2 (0-2) /HPF Urine WBC 0-5 (0-5) /HPF Ur Squamous Epith Cells 3-5 (0-2) /HPF Urine Bacteria Trace (None Seen) Hyaline Casts 0-2 (0-2) /LPF Urine Test (NEGATIVE) Salicylates < 5.0 L (15-30) mg/dL Acetaminophen < 1 (<30) mcg/mL Ethyl Alcohol < 10 mg/dL COVID-19 ([facility]) (Negative) COVID-19 Clin Com 02/13/22 02/13/22 Range/Units 10:24 12:25 WBC (4.8-10.8) X10*3/uL RBC (4.20-5.50) X10*6/uL Hgb (12.0-16.0) g/dl Hct (37.0-47.0) % MCV (80.0-98.0) fL MCH (27.0-33.0) pg MCHC (31.0-35.0) g/dl RDW (11.0-16.0) % Plt Count (160-400) X10*3/uL MPV (9.4-12.3) fL Immature Gran % (Auto) (0.0-0.4) % Neut % (Auto) (45-73) % Lymph % (Auto) (20-40) % Logan % (Auto) (2-11) % Eos % (Auto) (0-4) % Baso % (Auto) (0-2) % Lymph # (Auto) (1.2-4.9) X10*3/uL Logan # (Auto) (0.1-1.2) X10*3/uL Eos # (Auto) (0.0-0.4) X10*3/uL Baso # (Auto) (0.0-0.2) X10*3/uL Abs Immat Gran (auto) (0.00-0.03) X10*3/uL Absolute Neuts (auto) (2.0-8.3) x10*3/uL Absolute Nucleated RBC (0.0-0.012) X10*3/uL Nucleated RBC % (auto) (0.0-0.2) /100WBC Sodium (135-145) mmol/L Potassium (3.3-5.1) mmol/L Chloride (96-108) mmol/L Carbon Dioxide (22-29) mmol/L Anion Gap (12-20) BUN (9-16) mg/dL Creatinine (0.5-1.4) mg/dL Estim Creat Clear Calc Estimated GFR Random Glucose (60-115) mg/dL Calcium (8.4-10.2) mg/dL Total Bilirubin (0.0-1.0) mg/dL AST (5-31) U/L ALT (0-31) U/L Alkaline Phosphatase (39-117) U/L Total Protein (6.5-8.0) g/dL Albumin (3.5-5.0) g/dL Lipase (8-78) U/L Urine Color Urine Appearance Urine pH (5.0-9.0) Ur Specific Gilman (1.005-1.025) Urine Protein (Neg-Trace) mg/dL Urine Glucose (UA) (Negative) mg/dL Urine Ketones (Negative) mg/dL Urine Blood (Negative) Urine Nitrite (Negative) Ur Leukocyte Esterase (Negative) Urine RBC (0-2) /HPF Urine WBC (0-5) /HPF Ur Squamous Epith Cells (0-2) /HPF Urine Bacteria (None Seen) Hyaline Casts (0-2) /LPF Urine Test NEGATIVE (NEGATIVE) Salicylates (15-30) mg/dL Acetaminophen (<30) mcg/mL Ethyl Alcohol mg/dL COVID-19 ([facility]) Negative (Negative) COVID-19 Clin Com See Note Imaging Data US - abdomen: Radiologist's impression: US/US abdomen limited IMPRESSION: Cholelithiasis with positive sonographic Zaldivar's sign. No free fluid or gallbladder wall thickening. Clinical correlation required to exclude acute cholecystitis. Discharge Plan Discharge Clinical Impression: Cholelithiasis, Transaminitis Patient Disposition: Admitted As Inpatient Interventions: Admission Worksheet (ED) Last Done: 02/13/22 16:11 Discharge Date/Time: 02/13/22 16:16
[2022-02-13 09:55] LABS: MANUAL DIFF FLAG NO
[2022-02-13 09:58] LABS: Basophils Percent Auto 0.4 % (0-2); Eosinophils Percent Auto 0.6 % (0-4); Hematocrit 42.6 % (37.0-47.0); Hemoglobin 13.6 g/dl (12.0-16.0); Imm Gran Abs Auto 0.01 X10*3/uL (0.00-0.03); Imm Gran Pct Auto 0.2 % (0.0-0.4); Lymphocytes Percent Auto 20.9 % (20-40); Mean Corpuscular HGB Conc 31.9 g/dl (31.0-35.0); Mean Corpuscular Hemoglobin 26.1 pg (27.0-33.0); Mean Corpuscular Volume 81.6 fL (80.0-98.0); Mean Platelet Volume 9.7 fL (9.4-12.3); Monocytes Absolute Auto 0.2 X10*3/uL (0.1-1.2); Monocytes Percent Auto 4.7 % (2-11); Neutrophils Absolute Auto 3.4 x10*3/uL (2.0-8.3); Neutrophils Percent Auto 73.2 % (45-73); Platelet Count 287 X10*3/uL (160-400); Red Blood Count 5.22 X10*6/uL (4.20-5.50); Red Cell Distribution Width 13.3 % (11.0-16.0); White Blood Count 4.6 X10*3/uL (4.8-10.8)
[2022-02-13 10:14] LABS: Alanine Aminotransferase 723 U/L (0-31); Albumin Level 4.6 g/dL (3.5-5.0); Alkaline Phosphatase 228 U/L (39-117); Anion Gap 14 (12-20); Aspartate Amino Transferase 478 U/L (5-31); Bilirubin Total 2.5 mg/dL (0.0-1.0); Blood Urea Nitrogen 7 mg/dL (9-16); Calcium 9.5 mg/dL (8.4-10.2); Carbon Dioxide 23 mmol/L (22-29); Chloride 105 mmol/L (96-108); Creatinine Clr Calc Pharmacy 126.7; Estimated Glomerular Filt Rate > 60; Glucose Random 117 mg/dL (60-115); Lipase 15 U/L (8-78); Potassium 4.1 mmol/L (3.3-5.1); Sodium 138 mmol/L (135-145); Total Protein 7.6 g/dL (6.5-8.0)
[2022-02-13] MEDS: Magnesium Hydrox/Alum Hydrox 30 ML ORAL.SUSP 15 ML PO (10:20)
[2022-02-13] MEDS: Omeprazole 40 MG CAPSULE.DR PO (10:20)
[2022-02-13] MEDS: Lidocaine HCl Viscous 2 % 15 ML SOLUTION MUCOUS MEM (10:20)
[2022-02-13 10:30] LABS: Appearance Urine Cloudy; Color Urine Dark Yellow; Glucose Urine UA Negative (Negative); Leukocyte Esterase Urine Small (1+) (Negative); Nitrite Urine Negative (Negative); Specific Gravity - Urine 1.015 (1.005-1.025); UMIC TRIGGER UACC YES; Urine Blood Negative (Negative); Urine Ketones Negative (Negative); Urine Protein Negative (Neg-Trace)
[2022-02-13 10:31] LABS: UPreg QC Valid YES; Urine Pregnancy NEGATIVE (NEGATIVE)
[2022-02-13 10:39] LABS: Bacteria Urine Trace (None Seen); Hyaline Casts Urine 0-2 /LPF (0-2); RBC Urine 0-2 /HPF (0-2); UACC Culture Trigger YES; WBC Urine 0-5 /HPF (0-5)
[2022-02-13 12:03] LABS: Acetaminophen LAB < 1 mcg/mL (<30); Ethanol < 10 mg/dL; Salicylate < 5.0 mg/dL (15-30)
[2022-02-13] MEDS: Piperacillin Sodium/Tazobactam 3.375 GM in 0.9 % Sodium Chloride 50 ML IV (12:40)
--- NOTE | 2022-02-13 12:43 | PC.NURSE ---
Pt alert and oriented, respirations even and unlabored. Reporting no pain at this time. Visitor at bedside. IV established and antibiotics infusing.
[2022-02-13 12:49] LABS: COVID-19 Test Negative (Negative)
--- NOTE | 2022-02-13 13:10 | PM.HPGS ---
History of Present Illness History of Present Illness Date of Service: 02/14/22 Chief complaint: Abdominal Fluid Narrative: Chetna Dangelo is a 21 year old female who came to the ER 2 weeks ago with epigastric pain and sent home with diagnosis of gastritis and on PPI. not very helpful so she stopped . She tehn 2 days ago had chicken nuggets and woke up with pain in right side going to her back and nausea. came to the ER and lfts noted to be very elevated and u/s showing cbd at 5mm for this 21 year old female which is large and she had stones in her GB. 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 No known health problems Family History Family History Maternal Aunt Status post breast lumpectomy Social History Social History Household Members: Family Housing: Apartment Do you presently have visiting nurse or other home services: No Alcohol intake: never Patient Tobacco Use Status: Never used Tobacco Use of substances other than those prescribed or required for medical reasons: Yes Substance Use Type: Marijuana Substance Use Frequency: Daily Last Used Substance: Days (ago) Currently Displaying Signs/Symptoms of Drug Intoxication Withdrawal: No Have you been hit, kicked, punched, or otherwise hurt by someone within the past year? If so, by whom?: No Do you feel safe in your current relationship?: No Current Relationship Is there a partner from a previous relationship who is making you feel unsafe now?: No Are you made to feel afraid or neglected: No Advance Directives: No Advance Directives Information Provided: No Do you have thoughts of harming others: None Do you have a plan to hurt others: No Plan Recently lost weight without trying: No How much weight loss: Not applicable Eating poorly because of decreased appetite: No Nutrition screen score: 0 Nutrition Risks: No Nutritional Risk Patient : No : No Poor oral hygiene: No Sexual orientation: Straight/Heterosexual Gender identity: Female Meds Allergies Allergy/AdvReac Type Severity Reaction Status Date / Time No Known Allergies Allergy Verified 07/28/21 11:34 [No Known Allergies*] Active Medications: Current Medications Dextrose/Sodium Chloride (D5ns) 1,000 mls @ 100 mls/hr IVCONT .Q10H [facility] Last Admin: 02/13/22 23:19 Dose: 100 mls/hr Ondansetron HCl (Ondansetron Hcl 4 Mg/2 Ml Vial) 4 mg IVPUSH Q8H PRN PRN Reason: Nausea and Vomiting Sodium Chloride (0.9 % Sodium Chloride Flush 3 Ml Syringe) 3 ml IVFLUSH QSHIFT [facility] Last Admin: 02/13/22 23:19 Dose: 3 ml Home Medications Medication Instructions Recorded Confirmed Last Taken Type No Known Home Meds 02/13/22 02/13/22 Unknown History Physical Exam Vital Signs: Vital Signs: Last Vital Signs Temp 98.7 F 02/14/22 08:00 Pulse 59 02/14/22 08:00 Resp 17 02/14/22 08:00 BP 110/58 L 02/14/22 08:00 Pulse Ox 99 02/14/22 08:00 O2 Del Method 02/14/22 08:00 BMI result Body Mass Index 30.9 Const: General: cooperative, healthy appearing and comfortable Nutritional Appearance: average body habitus HEENT: Head: Yes normal to inspection Eyes: Other: nonicteric General: appearance normal, both eyes and all related structures Resp: Effort & Inspection: normal respiratory effort Auscultation: clear to auscultation bilaterally Cardio: Rate: regular rate Rhythm: regular rhythm GI: Other: soft mild right upper quad tenderness but no guarding or rebound or peritoneal signs. no masses : General: Yes no CVA tenderness Back/Spine/Pelvis: Back: no CVA tenderness Extrem: General: Yes normal to inspection and Yes full ROM Psych: Appearance: grossly normal Mental Status: mental status grossly normal Speech and movement: Normal speech and movement present Affect: normal affect Results Results Labs: Short CBC 02/13/22 02/14/22 Range/Units 09:51 08:54 WBC 4.6 L 4.4 L (4.8-10.8) X10*3/uL Hgb 13.6 D 12.6 (12.0-16.0) g/dl Hct 42.6 D 39.0 (37.0-47.0) % Plt Count 287 243 (160-400) X10*3/uL BMP 02/13/22 09:51 Sodium 138 Potassium 4.1 Chloride 105 Carbon Dioxide 23 BUN 7 L Creatinine 0.72 Calcium 9.5 Liver Function 02/13/22 Range/Units 09:51 Total Bilirubin 2.5 H (0.0-1.0) mg/dL AST 478 H (5-31) U/L ALT 723 H (0-31) U/L Alkaline Phosphatase 228 H (39-117) U/L Albumin 4.6 (3.5-5.0) g/dL Urine 02/13/22 02/13/22 Range/Units 10:23 10:24 Urine Color Dark Yellow Urine Appearance Cloudy Urine pH 8.0 (5.0-9.0) Ur Specific [place] 1.015 (1.005-1.025) Urine Protein Negative (Neg-Trace) mg/dL Urine Glucose (UA) Negative (Negative) mg/dL Urine Test NEGATIVE (NEGATIVE) Abdomen CT scan report/results: report reviewed and image reviewed US - pelvic: report reviewed and image reviewed Assessment and Plan (1) Cholelithiasis: Status: Acute (2) Transaminitis: Status: Acute (3) Choledocholithiasis: Status: Acute Plan 21 yo female with probable biliary colic and probable passing of stone in duct - plan admit, npo and eval labs tomorrow - hopefully will pass stone and can do lap gonzalo with cholangiogram. consider mrcp as needed. she understands and agrees with plan Quality Stroke Does the patient have a stroke diagnosis?: No VTE Prior VTE?: No VTE Risk Level:: Medical - low VTE Device Contraindication: N/A - Device Ordered VTE Drug Contraindication: N/A - Med Ordered Procedures Date of Service Date of Service: 02/13/22
--- NOTE | 2022-02-13 13:44 | PHA.MEDREC ---
Pharmacy Consult ? Medication Reconciliation Pharmacy has completed the medication reconciliation. Patient reports no medication at home prescripition or OTC. Elayne Whaley, [place]
[2022-02-13] MEDS: Dextrose 5 % and 0.9 % NaCl 1,000 ML 100 ML IVCONT ×2 (14:28→23:19)
--- NOTE | 2022-02-13 15:46 | PC.NURSE ---
Pt resting comfortably. Report given to med surg, awaiting transporter to bring pt upstairs.
--- NOTE | 2022-02-13 19:45 | PC.NURSE ---
Pt is A/O X4 , respiration is even/ non labored. Reported no pain at this time, aware of plan of care. NPO status reinforced.
[2022-02-13] MEDS: 0.9 % Sodium Chloride Flush 3 ML SYRINGE IVFLUSH (23:19)
[2022-02-14] VITALS: RESP 18
[2022-02-14 03:52] VITALS: BP 102/56; PULSE 54; RESP 18; TEMP 36.1; O2SAT 98
[2022-02-14 08:00] VITALS: BP 110/58; PULSE 59; RESP 17; TEMP 37.1; O2SAT 99
[2022-02-14 09:01] LABS: Baso%MD 0.5 %; Eos%MD 1.4 %; Hemoglobin 12.6 g/dl (12.0-16.0); IG%MD 0.2 %; Mean Corpuscular HGB Conc 32.3 g/dl (31.0-35.0); Mean Corpuscular Hemoglobin 26.8 pg (27.0-33.0); Mean Corpuscular Volume 82.8 fL (80.0-98.0); Mean Platelet Volume 9.5 fL (9.4-12.3); Mono%MD 5.4 %; Neut%MD 57.5 %; Platelet Count 243 X10*3/uL (160-400); Red Blood Count 4.71 X10*6/uL (4.20-5.50); Red Cell Distribution Width 13.3 % (11.0-16.0); White Blood Count 4.4 X10*3/uL (4.8-10.8)
[2022-02-14 09:25] LABS: Alanine Aminotransferase 458 U/L (0-31); Alkaline Phosphatase 189 U/L (39-117); Anion Gap 14 (12-20); Aspartate Amino Transferase 143 U/L (5-31); Bilirubin Total 0.9 mg/dL (0.0-1.0); Blood Urea Nitrogen 6 mg/dL (9-16); Calcium 8.8 mg/dL (8.4-10.2); Carbon Dioxide 20 mmol/L (22-29); Chloride 109 mmol/L (96-108); Creatinine Clr Calc Pharmacy 130.3; Estimated Glomerular Filt Rate > 60; Glucose Random 106 mg/dL (60-115); Potassium 3.9 mmol/L (3.3-5.1); Sodium 139 mmol/L (135-145); Total Protein 6.5 g/dL (6.5-8.0)
[2022-02-14 09:27] LABS: Band Neutrophils Percent 0 % (3-5); Basophils Percent Manual 1 % (0-2); Eosinophils Absolute Manual 0.1 X10*3/uL (0.0-0.4); Eosinophils Percent Manual 3 % (0-4); Lymphocytes Absolute Manual 1.2 X10*3/uL (1.2-4.9); Lymphocytes Percent Manual 28 % (20-40); Monocytes Absolute Manual 0.6 X10*3/uL (0.1-1.2); Monocytes Percent Manual 13 % (2-11); Neutrophils Absolute Manual 2.4 X10*3/uL (2.0-8.3); Neutrophils Percent Manual 55 % (45-73)
[2022-02-14 09:28] LABS: Platelet Estimate NORMAL (NORMAL); Platelet Morphology Comment NORMAL; RBC Morphology NORMAL
[2022-02-14] MEDS: Dextrose 5 % and 0.9 % NaCl 1,000 ML 100 ML IVCONT ×2 (10:05→20:59)
[2022-02-14] MEDS: 0.9 % Sodium Chloride Flush 3 ML SYRINGE IVFLUSH ×2 (10:05→21:02)
[2022-02-14 11:40] VITALS: BP 127/58; PULSE 64; RESP 17; TEMP 36.8; O2SAT 99
--- NOTE | 2022-02-14 16:11 | MHC.CM.PN ---
PT REPORTS SHE LIVES AT HOME WITH HER MOTHER AND IS INDEPENDENT SHE DENIES USE OF DME OR HOME SERVICES AND WORKS PT REPORTS SHE HAS NOT HAD A PCP FOR MORE THAN A YEAR SHE WAS SEEING AN OB SHE PREVIOUSLY WENT TO [facility] NO HCP SHE SAYS SHE IS VACCINATED AGAINST COVID CURRENT DC PLAN IS HOME WITH NO SERVICES FAMILY TO TRANSPORT
[2022-02-14 19:48] VITALS: BP 124/56; PULSE 56; TEMP 36.9; O2SAT 98
--- NOTE | 2022-02-14 21:33 | PM.PNGS ---
Subjective Subjective Date of Service: 02/14/22 Interval history: feeling well no pain no nausea Physical Exam Vital Signs: Vital Signs: Last Vital Signs Temp 98.4 F 02/14/22 19:48 Pulse 56 02/14/22 19:48 Resp 17 02/14/22 11:40 BP 124/56 L 02/14/22 19:48 Pulse Ox 98 02/14/22 19:48 O2 Del Method 02/14/22 19:48 BMI result Body Mass Index 30.9 Resp: Effort & Inspection: normal respiratory effort Cardio: Rate: regular rate Rhythm: regular rhythm GI: Other: soft nontender nondistended Objective Data Active Medications Dextrose/Sodium Chloride (D5ns) 1,000 mls @ 100 mls/hr IVCONT .Q10H [facility] Last Admin: 02/14/22 20:59 Dose: 100 mls/hr Documented By: ELIZABETH Ondansetron HCl (Ondansetron Hcl 4 Mg/2 Ml Vial) 4 mg IVPUSH Q8H PRN PRN Reason: Nausea and Vomiting Sodium Chloride (0.9 % Sodium Chloride Flush 3 Ml Syringe) 3 ml IVFLUSH QSHIFT [facility] Last Admin: 02/14/22 21:02 Dose: 3 ml Documented By: ELIZABETH Labs CBC & Chem 7: 02/14/22 08:54 02/14/22 08:54 Labs: Laboratory Results - last 24 hr 02/14/22 02/14/22 08:54 08:54 MCV 82.8 MCH 26.8 L MCHC 32.3 RDW 13.3 Plt Count 243 MPV 9.5 Absolute Nucleated RBC 0.000 Nucleated RBC % (auto) 0.0 Neutrophils % (Manual) 55 Band Neutrophils % 0 L Lymphocytes % (Manual) 28 Monocytes % (Manual) 13 H Eosinophils % (Manual) 3 Basophils % (Manual) 1 Abs Neuts (Manual) 2.4 Lymphocytes # (Manual) 1.2 Monocytes # (Manual) 0.6 Eosinophils # (Manual) 0.1 Platelet Estimate NORMAL Plt Morphology Comment NORMAL RBC Morphology NORMAL Anion Gap 14 Estim Creat Clear Calc 130.3 Estimated GFR > 60 Random Glucose 106 Calcium 8.8 D Total Bilirubin 0.9 AST 143 H ALT 458 H Alkaline Phosphatase 189 H Total Protein 6.5 Albumin 4.0 Microbiology Microbiology Results: Microbiology 02/13/22 Unknown Urine Culture - Final Urine clean catch - Urine tenorio top Procedures Date of Service Date of Service: 02/14/22 Progress Note: A&P Assessment and plan (1) Choledocholithiasis: Status: Acute Assessment and Plan: 21 year old female with choledocholithiasis probably and now iwth improving lfts and not tender - plan to advance diet then npo after midlnight and do lap gonzalo with cholangiogram tomorrow. pt understsnds risks and benefits and wishes to proceed. Time Spent With Patient Time: Total time spent is greater than 50% in coordination of care (as documented) at patient's floor/unit and/or counseling patient: Quality Stroke Does the patient have a stroke diagnosis?: No VTE Prior VTE?: No VTE Risk Level:: Medical - low VTE Device Contraindication: N/A - Device Ordered VTE Drug Contraindication: N/A - Med Ordered
[2022-02-14 23:42] VITALS: BP 127/59; PULSE 57; RESP 18; TEMP 36.6; O2SAT 100
[2022-02-15] VITALS (12 sets, daily range): BP systolic 107–139; BP diastolic 50–80; PULSE 56–90; RESP 14–18; TEMP 36.2–37.1; O2SAT 98–100
[2022-02-15] MEDS: Dextrose 5 % and 0.9 % NaCl 1,000 ML 100 ML IVCONT ×2 (05:32→18:08)
[2022-02-15 06:38] LABS: Alanine Aminotransferase 317 U/L (0-31); Albumin Level 3.7 g/dL (3.5-5.0); Alkaline Phosphatase 161 U/L (39-117); Anion Gap 13 (12-20); Aspartate Amino Transferase 73 U/L (5-31); Bilirubin Total 0.7 mg/dL (0.0-1.0); Blood Urea Nitrogen 5 mg/dL (9-16); Calcium 8.8 mg/dL (8.4-10.2); Carbon Dioxide 20 mmol/L (22-29); Chloride 111 mmol/L (96-108); Creatinine Clr Calc Pharmacy 132.2; Estimated Glomerular Filt Rate > 60; Glucose Random 111 mg/dL (60-115); Sodium 140 mmol/L (135-145); Total Protein 6.1 g/dL (6.5-8.0)
[2022-02-15 09:25] LABS: HBS Num1 2.11 mIU/mL (0-7.99); HBc Num1 0.15 S/CO (0.00-0.79); HBsAGNum1 0.18 S/CO (0.00-0.99); Hepatitis B Core Antibody Nonreactive (Nonreactive); Hepatitis B Surface Antigen Negative (Negative); ~HepC Num1 0.11 S/CO (0.00-0.79); ~Hepatitis B Surface Antibody NONREACTIVE (Nonreactive); ~Hepatitis C Antibody Nonreactive (Nonreactive)
--- NOTE | 2022-02-15 13:53 | P.CONAN_ITS ---
HPI - Anesthesia Eval Consult details Narrative: 21 F for Sae sánchez PMFSH Active Problems Active Problems: All Active Problems (Updated 02/14/22 @ 12:24 by Geena Wilder MD) Choledocholithiasis (Acute) Cholelithiasis (Acute) Transaminitis (Acute) Encounter for supervision of normal in third trimester (Acute) (Acute) Elevated glucose tolerance test (Acute) Rh negative state in antepartum period (Acute) Anemia affecting (Acute) Cervical cancer screening (Acute) Supervision of normal in second trimester (Acute) Fibroadenoma of right breast (Acute) Early stage of (Acute) Nausea and vomiting (Acute) Irregular menses (Acute) Abnormal ultrasound of breast (Acute) Breast mass, right (Acute) Past Medical History Medical History 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 No known health problems Functional capacity: independent ambulation Family History Family History Maternal Aunt Status post breast lumpectomy Family history of problems with anesthesia: No Surgical History History of Problems with Anesthesia: No Social History Social History Household Members: Family Housing: Apartment Do you presently have visiting nurse or other home services: No Alcohol intake: never Patient Tobacco Use Status: Never used Tobacco Use of substances other than those prescribed or required for medical reasons: Yes Substance Use Type: Marijuana Substance Use Frequency: Daily Last Used Substance: Days (ago) Currently Displaying Signs/Symptoms of Drug Intoxication Withdrawal: No Have you been hit, kicked, punched, or otherwise hurt by someone within the past year? If so, by whom?: No Do you feel safe in your current relationship?: No Current Relationship Is there a partner from a previous relationship who is making you feel unsafe now?: No Are you made to feel afraid or neglected: No Are you DNR?: No Advance Directives: No Advance Directives Information Provided: No Do you have thoughts of harming others: None Do you have a plan to hurt others: No Plan Recently lost weight without trying: No How much weight loss: Not applicable Eating poorly because of decreased appetite: No Nutrition screen score: 0 Nutrition Risks: No Nutritional Risk Patient : No : No Poor oral hygiene: No service: No Current occupational status: employed Sexual orientation: Straight/Heterosexual Gender identity: Female Meds Allergies Allergy/AdvReac Type Severity Reaction Status Date / Time No Known Allergies Allergy Verified 07/28/21 11:34 [No Known Allergies*] Active Medications: Current Medications Dextrose/Sodium Chloride (D5ns) 1,000 mls @ 100 mls/hr IVCONT .Q10H [facility] Last Admin: 02/15/22 05:32 Dose: 100 mls/hr Ondansetron HCl (Ondansetron Hcl 4 Mg/2 Ml Vial) 4 mg IVPUSH Q8H PRN PRN Reason: Nausea and Vomiting Sodium Chloride (0.9 % Sodium Chloride Flush 3 Ml Syringe) 3 ml IVFLUSH QSHIFT [facility] Last Admin: 02/15/22 09:00 Dose: Not Given Home Medications Medication Instructions Recorded Confirmed Last Taken Type No Known Home Meds 02/13/22 02/13/22 Unknown History Exam Exam Date and Time: February 15, 2022 1353 Height,Weight and Vital Signs: Height 5 ft 4 in Weight 81.647 kg Last Vital Signs Temp 98.8 F 02/15/22 13:20 Pulse 65 02/15/22 13:20 Resp 16 02/15/22 13:20 BP 122/80 02/15/22 13:20 Pulse Ox 100 02/15/22 13:20 O2 Del Method 02/15/22 13:20 Pertinent Lab Results Pertinent Lab Results: Laboratory Tests 02/13/22 02/13/22 02/13/22 09:51 09:51 09:51 WBC 4.6 L RBC 5.22 D Hgb 13.6 D Hct 42.6 D MCV 81.6 MCH 26.1 L MCHC 31.9 RDW 13.3 Plt Count 287 MPV 9.7 Immature Gran % (Auto) 0.2 Neut % (Auto) 73.2 H Lymph % (Auto) 20.9 [place] % (Auto) 4.7 Eos % (Auto) 0.6 Baso % (Auto) 0.4 Lymph # (Auto) 1.0 L [place] # (Auto) 0.2 Eos # (Auto) 0.0 Baso # (Auto) 0.0 Abs Immat Gran (auto) 0.01 Absolute Neuts (auto) 3.4 Absolute Nucleated RBC 0.000 Nucleated RBC % (auto) 0.0 Neutrophils % (Manual) Band Neutrophils % Lymphocytes % (Manual) Monocytes % (Manual) Eosinophils % (Manual) Basophils % (Manual) Abs Neuts (Manual) Lymphocytes # (Manual) Monocytes # (Manual) Eosinophils # (Manual) Platelet Estimate Plt Morphology Comment RBC Morphology Sodium 138 Potassium 4.1 Chloride 105 Carbon Dioxide 23 Anion Gap 14 BUN 7 L Creatinine 0.72 Estim Creat Clear Calc 126.7 Estimated GFR > 60 Random Glucose 117 H Calcium 9.5 Total Bilirubin 2.5 H AST 478 H ALT 723 H Alkaline Phosphatase 228 H Total Protein 7.6 Albumin 4.6 Lipase 15 Urine Color Urine Appearance Urine pH Ur Specific [place] Urine Protein Urine Glucose (UA) Urine Ketones Urine Blood Urine Nitrite Ur Leukocyte Esterase Urine RBC Urine WBC Ur Squamous Epith Cells Urine Bacteria Hyaline Casts Urine Test Salicylates < 5.0 L Acetaminophen < 1 Ethyl Alcohol < 10 COVID-19 ([facility]) COVID-19 Clin Com Hep Bs Antigen Negative Hep Bs Antibody NONREACTIVE Hep B Core Total Ab Nonreactive Hepatitis C Ab (EIA) Nonreactive 02/13/22 02/13/22 02/13/22 10:23 10:24 12:25 WBC RBC Hgb Hct MCV MCH MCHC RDW Plt Count MPV Immature Gran % (Auto) Neut % (Auto) Lymph % (Auto) [place] % (Auto) Eos % (Auto) Baso % (Auto) Lymph # (Auto) [place] # (Auto) Eos # (Auto) Baso # (Auto) Abs Immat Gran (auto) Absolute Neuts (auto) Absolute Nucleated RBC Nucleated RBC % (auto) Neutrophils % (Manual) Band Neutrophils % Lymphocytes % (Manual) Monocytes % (Manual) Eosinophils % (Manual) Basophils % (Manual) Abs Neuts (Manual) Lymphocytes # (Manual) Monocytes # (Manual) Eosinophils # (Manual) Platelet Estimate Plt Morphology Comment RBC Morphology Sodium Potassium Chloride Carbon Dioxide Anion Gap BUN Creatinine Estim Creat Clear Calc Estimated GFR Random Glucose Calcium Total Bilirubin AST ALT Alkaline Phosphatase Total Protein Albumin Lipase Urine Color Dark Yellow Urine Appearance Cloudy Urine pH 8.0 Ur Specific [place] 1.015 Urine Protein Negative Urine Glucose (UA) Negative Urine Ketones Negative Urine Blood Negative Urine Nitrite Negative Ur Leukocyte Esterase Small (1+) H Urine RBC 0-2 Urine WBC 0-5 Ur Squamous Epith Cells 3-5 Urine Bacteria Trace Hyaline Casts 0-2 Urine Test NEGATIVE Salicylates Acetaminophen Ethyl Alcohol COVID-19 ([facility]) Negative COVID-19 Clin Com See Note Hep Bs Antigen Hep Bs Antibody Hep B Core Total Ab Hepatitis C Ab (EIA) 02/14/22 02/14/22 02/15/22 08:54 08:54 05:06 WBC 4.4 L RBC 4.71 Hgb 12.6 Hct 39.0 MCV 82.8 MCH 26.8 L MCHC 32.3 RDW 13.3 Plt Count 243 MPV 9.5 Immature Gran % (Auto) Neut % (Auto) Lymph % (Auto) [place] % (Auto) Eos % (Auto) Baso % (Auto) Lymph # (Auto) [place] # (Auto) Eos # (Auto) Baso # (Auto) Abs Immat Gran (auto) Absolute Neuts (auto) Absolute Nucleated RBC 0.000 Nucleated RBC % (auto) 0.0 Neutrophils % (Manual) 55 Band Neutrophils % 0 L Lymphocytes % (Manual) 28 Monocytes % (Manual) 13 H Eosinophils % (Manual) 3 Basophils % (Manual) 1 Abs Neuts (Manual) 2.4 Lymphocytes # (Manual) 1.2 Monocytes # (Manual) 0.6 Eosinophils # (Manual) 0.1 Platelet Estimate NORMAL Plt Morphology Comment NORMAL RBC Morphology NORMAL Sodium 139 140 Potassium 3.9 4.0 Chloride 109 H 111 H Carbon Dioxide 20 L 20 L Anion Gap 14 13 BUN 6 L 5 L Creatinine 0.70 0.69 Estim Creat Clear Calc 130.3 132.2 Estimated GFR > 60 > 60 Random Glucose 106 111 Calcium 8.8 D 8.8 Total Bilirubin 0.9 0.7 AST 143 H 73 H ALT 458 H 317 H Alkaline Phosphatase 189 H 161 H Total Protein 6.5 6.1 L Albumin 4.0 3.7 Lipase Urine Color Urine Appearance Urine pH Ur Specific [place] Urine Protein Urine Glucose (UA) Urine Ketones Urine Blood Urine Nitrite Ur Leukocyte Esterase Urine RBC Urine WBC Ur Squamous Epith Cells Urine Bacteria Hyaline Casts Urine Test Salicylates Acetaminophen Ethyl Alcohol COVID-19 ([facility]) COVID-19 Clin Com Hep Bs Antigen Hep Bs Antibody Hep B Core Total Ab Hepatitis C Ab (EIA) Airway Mallampati Class: IV TM Dist: >3cm Neck ROM: Full Loose/Missing/Broken Teeth: Yes (Fillings , caps ) Heart: S1,S2 Lungs: b/l breath sounds Assessment and Plan Assessment Anesthesia Assessment: Anesthesia Plan Discussed and Chart Reviewed Final Anesthetic Review Family History of Problems with Anesthesia: No History of Problems with Anesthesia: No NPO: Yes ASA Class: II and Emergency Final Preanesthetic Review: Meds/Allgs Chart Reviewed, Consent Obtained/Reviewed and Anes Risks/Benef Reviewed Patient Risk: Intermediate Procedure Risk: Intermediate Anesthetic Plan Anesthetic Plan: GA Disposition: Standard PACU
[2022-02-15] MEDS: 0.9 % Sodium Chloride Flush 3 ML SYRINGE IVFLUSH (18:09)
[2022-02-15] MEDS: Morphine Sulfate 4 MG/ML CARTRIDGE IVPUSH ×2 (18:20→22:12)
[2022-02-15] MEDS: oxyCODONE HCl Immed Release 5 MG TABLET PO (20:21)
--- NOTE | 2022-02-15 20:36 | P.PNGS_ITS ---
Subjective Subjective Date of Service: 02/15/22 Interval history: Ordering Physician: Geena Wilder MD Date of Service: 02/15/22 Procedure(s): MR MRCP Accession Number(s): [id number] cc: Geena Wilder MD~ EXAMINATION: MR CHOLANGIOPANCREATOGRAPHY CLINICAL INFORMATION: pt with elevated LFts mild dilated cbd , COMPARISON: 02/15/2022 intraoperative fluoroscopy 03/15/2017 CT scan of the abdomen and pelvis TECHNIQUE: Multiple routine MRI sequences through the abdomen were obtained. Heavily T2-weighted images were performed utilizing a dedicated MRCP technique. Contrast was not utilized for the study. FINDINGS: Biliary system: The common bile duct is normal in course and caliber measuring up to 0.7 cm with no evidence for intra-or extrahepatic biliary ductal dilatation. No intraluminal filling defects are appreciated. Gallbladder: Surgically absent with surgical drain in the right upper quadrant. Liver parenchyma is homogeneous in signal with no focal hepatic lesion appreciated. Pancreas: The pancreatic duct is normal in course and caliber with no evidence for pancreatic ductal obstruction.? There is homogeneous signal to the pancreas with no focal suspicious pancreatic lesion. Tiny bilateral pleural effusions and bibasilar atelectasis No visualized abnormalities are seen in the kidneys, adrenals, or spleen. MR/MR MRCP IMPRESSION: Status post cholecystectomy. No suspicious collection. No biliary ductal dilatation or intraluminal filling defect within the common bile duct ? ? Dictated By: Ryan Zuniga MD Signed By: <Electronically signed by Ryan Zuniga MD in OV> 02/15/222016 DD/ 44 TD/TT:? Wheel Alignment Technician: MO Physical Exam Vital Signs: Vital Signs: Last Vital Signs Temp 97.8 F 02/15/22 17:56 Pulse 79 02/15/22 17:56 Resp 18 02/15/22 17:56 BP 139/69 02/15/22 17:56 Pulse Ox 100 02/15/22 17:56 O2 Del Method 02/15/22 17:56 O2 Flow Rate 6 02/15/22 16:38 BMI result Body Mass Index 30.9 Objective Data Active Medications Acetaminophen (Acetaminophen 325 Mg Tablet) 650 mg PO Q6H PRN PRN Reason: fever, pain Dextrose/Sodium Chloride (D5ns) 1,000 mls @ 100 mls/hr IVCONT .Q10H [facility] Last Admin: 02/15/22 18:08 Dose: 100 mls/hr Documented By: ZULEMA Morphine Sulfate (Morphine Sulfate 4 Mg/Ml Cartridge) 4 mg IVPUSH Q4H PRN; Pr otocol PRN Reason: Pain, Severe (Pain Scale 7-10) Last Admin: 02/15/22 18:20 Dose: 4 mg Documented By: ZULEMA Ondansetron HCl (Ondansetron Hcl 4 Mg/2 Ml Vial) 4 mg IVPUSH Q8H PRN PRN Reason: Nausea and Vomiting Oxycodone HCl (Oxycodone Hcl Immed Release 5 Mg Tablet) 5 mg PO Q4H PRN PRN Reason: Pain, Moderate (Pain Scale 4-6 Last Admin: 02/15/22 20:21 Dose: 5 mg Documented By: ZULEMA Sodium Chloride (0.9 % Sodium Chloride Flush 3 Ml Syringe) 3 ml IVFLUSH QSHIFT [facility] Last Admin: 02/15/22 18:09 Dose: 3 ml Documented By: ZULEMA Labs CBC & Chem 7: 02/14/22 08:54 02/15/22 05:06 Labs: Laboratory Results - last 24 hr 02/13/22 02/15/22 09:51 05:06 Anion Gap 13 Estim Creat Clear Calc 132.2 Estimated GFR > 60 Random Glucose 111 Calcium 8.8 Total Bilirubin 0.7 AST 73 H ALT 317 H Alkaline Phosphatase 161 H Total Protein 6.1 L Albumin 3.7 Hep Bs Antigen Negative Hep Bs Antibody NONREACTIVE Hep B Core Total Ab Nonreactive Hepatitis C Ab (EIA) Nonreactive Procedures Date of Service Date of Service: 02/15/22 Progress Note: A&P Assessment and plan (1) Choledocholithiasis: Status: Acute Assessment and Plan: lapc hole done no issues cholangiogram no emptying into the duodenum - no obvious stone GI - dr Vogel consulted- will see in am MRCP done results above cmp labs for am. Time Spent With Patient Time: Total time spent is greater than 50% in coordination of care (as documented) at patient's floor/unit and/or counseling patient: Quality Stroke Does the patient have a stroke diagnosis?: No VTE Prior VTE?: No VTE Risk Level:: Medical - low VTE Device Contraindication: N/A - Device Ordered VTE Drug Contraindication: N/A - Med Ordered
--- NOTE | 2022-02-15 22:01 | PM.EVENT ---
Event Note Date of Service: 02/15/22 Event Note: GI-Consult received-case D/W Dr. Wilder--Patient will be seen and examined with a full note to follow on 02/16. Concern is that of a retained CBD stone with previously elevated LFT's and lack of flow of contrast into the duodenum during her IOC. Her MRCP from this evening reports no sign of a CBD stone. Will check her follow labs in the AM and then decide about need for ERCP. Thanks very much.
--- NOTE | 2022-02-15 22:38 | P.OP_ITS ---
Operative Note Operative Note Date of Service: 02/15/22 Narrative: preop diagnosis-- choledocholithiasis, biliary colic postop diagnosis-- chronic cholecystitis choledocholithiasis procedure -- laparoscopic cholecystectomy with cholangiogram surgeon --reyna the patel Anaesthesia-- VIDAL HOLLOWAY The patient is a 21-year-old female who presented with some abdominal pain and elevated LFTs. She was admitted with biliary colic and probable choledocholithiasis. She was kept NPO and by the next day her a lot he has had markedly improved with normal bilirubin. He was that her minute she probably passed the ducts down has her ultrasound showed multiple gallstones in the gallbladder and a mildly distended duct at 5 mm. It was decided sick area out laparoscopic cholecystectomy with cholangiogram with a possible need for ERCP if she had a retained stone. Findings -- chronic cholecystitis and cholangiogram showing obstruction of the common bile duct distally Procedure -- the patient was brought to the operative room and under anesthesia guidance the GB that she had compression stockings placed before induction received preoperative antibiotics. Her abdomen is prepped and draped in standard surgical fashion an infraumbilical incision was created after the numb ink up the area with Marcaine. Dissection was carried down to the anterior abdominal wall fascia which was grasped with Rosetta is and transected. [address] The son trocar introduced and pneumoperitoneum established. The camera was inserted and the abdominal area looked fine and up in the right upper quadrant was the gallbladder with multiple adhesions. Three 5 mm ports were then placed in the epigastric area and 2 in the right upper quadrant area under direct visualization using local. Patient was positioned head up and left-side down. The gallbladder was grasped and retracted superiorly and laterally adhesions to the stomach and duodenum were taken down hand this opened up the gallbladder section we were able to the now visualize the triangle of Calot. The cystic duct area was dissected out and the cystic artery also dissected. in planning to do A cholangiogram was decided to take the artery is this would give us more room so the artery was clipped 2 down 1 up and transected a small area near the junction of the cystic duct and gallbladder was cut open using the scissors but not much bile had leaked out. The cholangiogram catheter was inserted into the abdominal cavity after irrigating at and setting up contrast as well as saline irrigation and the tip was inserted into the ductotomy and into the cystic duct and the balloon inflated to keep it into place. The area was flushed with saline and the stalk could without any leaks. Cholangiogram was then carried out in the showed nice filling of the cystic duct the common bile duct the hepatic radicles and the distal common bile duct going down. No gallstones or duct obstructing lesions were noted. Unfortunately there was no contrast that went into the duodenum area and the area was flushed with more saline and eventually glucagon given and the patient positioned a little differently and still there was no filling of the duodenum with the contrast that had been hot and area at this point it was d ecided to leave the area as is and carry out postop ERCP and discuss the case with the gastroenterology team. A drain was left in place at the end of the case in case the cystic duct clips were to come off due to the high pressure. The cholangiogram catheter was removed and the cystic duct dissected a little bit better and and 3 clips were placed down and 1 up and this was transected. Then using the hook cautery the gallbladder was removed from the liver intact and placed in the Endo-Catch bag and removed from the infraumbilical port site. The area was irrigated and the 7 ANISA drain secured. This was placed in the right upper quadrant area in the gallbladder fossa. The cystic duct clips looked good as well as the cystic artery and the liver bed was dry. The ports were then removed under direct visualization the pursestring suture approximated the infraumbilical port area. The other port sites were closed with Monocryl and Dermabond. At the end of the case all sponge instrument needle counts were correct estimated blood loss was less than 5 cc specimen sent was the gallbladder the patient was extubated returned stable to recovery room
[2022-02-16] VITALS (13 sets, daily range): BP systolic 92–129; BP diastolic 37–78; PULSE 58–79; RESP 16–18; TEMP 36.4–37.7; O2SAT 96–100
--- NOTE | 2022-02-16 00:58 | PC.NURSE ---
Took over patient care around 2300. Pt A&OX4, pleasant and cooperative. Patient states she is a little uncomfortable being in the hospital alone and this is her first surgery. Pt reassured and discussed what she is going through as well as plan of care. IV fluids infusing as ordered. Abdominal dressing - CD&I. Drain intact with serosanguineous drainage. Abdomen tender but no reports of pain. Ice pack given for comfort. Pt reminded to use IS and obtains a volume of 1,000. Pt aware she is NPO for surgery tomorrow. Denies N/V. Will continue to monitor. See shift assessment for complete assessment.
[2022-02-16] MEDS: Dextrose 5 % and 0.9 % NaCl 1,000 ML 100 ML IVCONT (05:17)
[2022-02-16 06:43] LABS: INTERNATIONAL NORM RATIO 1.1 (0.9-1.1); Prothrombin Time 13.1 SEC (10.0-13.1)
[2022-02-16 07:11] LABS: Alanine Aminotransferase 575 U/L (0-31); Albumin Level 4.1 g/dL (3.5-5.0); Alkaline Phosphatase 201 U/L (39-117); Anion Gap 14 (12-20); Aspartate Amino Transferase 513 U/L (5-31); Bilirubin Direct 1.7 mg/dL (0.0-0.5); Bilirubin Total 2.5 mg/dL (0.0-1.0); Blood Urea Nitrogen 4 mg/dL (9-16); Calcium 9.3 mg/dL (8.4-10.2); Carbon Dioxide 23 mmol/L (22-29); Chloride 107 mmol/L (96-108); Creatinine Clr Calc Pharmacy 142.5; Estimated Glomerular Filt Rate > 60; Glucose Random 118 mg/dL (60-115); Potassium 4.3 mmol/L (3.3-5.1); Sodium 140 mmol/L (135-145); Total Protein 6.9 g/dL (6.5-8.0)
--- NOTE | 2022-02-16 08:41 | MHC.SHP ---
Pre-Procedural Eval Section A Date of Service: 02/16/22 The patient is an INPATIENT: Yes The History & Physical has been completed within 30 days and I have reviewed it.: Yes Section B Chief Complaint: Abdominal Fluid Allergies: Allergies Allergy/AdvReac Type Severity Reaction Status Date / Time No Known Allergies Allergy Verified 07/28/21 11:34 [No Known Allergies*] Plan I have reviewed the history and physical and performed a pertinent physical examination on my patient. No changes have occurred unless specified.
--- NOTE | 2022-02-16 08:42 | P.EN_ITS ---
Event Note Date of Service: 02/16/22 Event Note: GI Consult-Full note dictated Imp: 21 yo female 1 day post-op Lap CCY for symptomatic stones and now with recurrent elevation of the LFT's, including direct bilirubin. Her IOC was negative for any definitive filling defects but contrast did not enter the duodenum. Her MRCP does not show any definitive filling defects. She appears well and nontoxic. Her drain only has serosanguinous fluid. Diff dx: CBD stone(s), elevated LFT's from manipulation of bile duct in traoperatively. Rec: ERCP today(if OR schedule permits) with me or Dr. Starks. Full consent obtained for this, including risks of bleeding, perforation, cholangitis, and pancreatitis. D/W patient in detail and she is comfortable with this plan. Thanks
--- NOTE | 2022-02-16 09:03 | P.PNGS_ITS ---
Subjective Subjective Date of Service: 02/16/22 <Marion Brink PA-C - Last Filed: 02/16/22 14:44> 02/16/22 <Shadi Santoro MD - Last Filed: 02/16/22 09:56> Interval history: Feels ok this morning. Mild incisional pain. <Marion Brink PA-C - Last Filed: 02/16/22 14:44> Physical Exam Vital Signs: Vital Signs: Last Vital Signs Temp 99.4 F 02/16/22 08:10 Pulse 60 02/16/22 08:10 Resp 16 02/16/22 08:10 BP 116/66 02/16/22 08:10 Pulse Ox 98 02/16/22 08:10 O2 Del Method 02/16/22 08:10 O2 Flow Rate 6 02/15/22 16:38 BMI result Body Mass Index 30.9 <Marion Brink PA-C - Last Filed: 02/16/22 14:44> Const: General: comfortable, no acute distress and alert <Marion Brink PA-C - Last Filed: 02/16/22 14:44> Orientation/consciousness: patient oriented x3 <Marion Brink PA-C - Last Filed: 02/16/22 14:44> Resp: Effort & Inspection: normal respiratory effort <Marion Brink PA-C - Last Filed: 02/16/22 14:44> GI: Other: ANISA drain with serosanguineous drainage <Marion Brink PA-C - Last Filed: 02/16/22 14:44> Inspection: No distended and Yes incision (clean) <Marion Brink PA-C - Last Filed: 02/16/22 14:44> Palpation (GI): Soft to palpation, Tenderness to palpation present (GI) (mild, incisional), no guarding and not rigid <SHRUTHI Reyes Last Filed: 02/16/22 14:44> Skin: General skin exam: no rashes or lesions noted <SHRUTHI Reyes Last Filed: 02/16/22 14:44> Neuro: General: patient oriented x3 and moves all extremities <Mairon Brink PA-C - Last Filed: 02/16/22 14:44> Extrem: General: Yes no clubbing, cyanosis or edema <Marion Brink PA-C - Last Filed: 02/16/22 14:44> Objective Data Active Medications Acetaminophen (Acetaminophen 325 Mg Tablet) 650 mg PO Q6H PRN PRN Reason: fever, pain Dextrose/Sodium Chloride (D5ns) 1,000 mls @ 100 mls/hr IVCONT .Q10H COUNTS INCLUDE 234 BEDS AT THE [facility] Last Admin: 02/16/22 05:17 Dose: 100 mls/hr Documented By: JIM Levofloxacin (Levaquin) 500 mg in 100 mls @ 100 mls/hr IV PREOP ONE Stop: 02/16/22 09:38 Morphine Sulfate (Morphine Sulfate 4 Mg/Ml Cartridge) 4 mg IVPUSH Q4H PRN; Pro tocol PRN Reason: Pain, Severe (Pain Scale 7-10) Last Admin: 02/15/22 22:12 Dose: 4 mg Documented By: ZULEMA Ondansetron HCl (Ondansetron Hcl 4 Mg/2 Ml Vial) 4 mg IVPUSH Q8H PRN PRN Reason: Nausea and Vomiting Oxycodone HCl (Oxycodone Hcl Immed Release 5 Mg Tablet) 5 mg PO Q4H PRN PRN Reason: Pain, Moderate (Pain Scale 4-6 Last Admin: 02/15/22 20:21 Dose: 5 mg Documented By: ZULEMA Sodium Chloride (0.9 % Sodium Chloride Flush 3 Ml Syringe) [facility] Last Admin: 02/16/22 07:59 Dose: Not Given Documented By: DARRELL Non-Admin Reason: IV Running <Marion Brink PA-C - Last Filed: 02/16/22 14:44> Labs CBC & Chem 7: : 02/14/22 08:54 02/16/22 06:06 <Marion Brink PA-C - Last Filed: 02/16/22 14:44> Labs: Laboratory Results - last 24 hr 02/13/22 02/16/22 02/16/22 09:51 06:06 06:06 PT 13.1 INR 1.1 Anion Gap Cancelled Estim Creat Clear Calc Cancelled Estimated GFR Cancelled Random Glucose Cancelled Calcium Cancelled Total Bilirubin Cancelled Direct Bilirubin AST Cancelled ALT Cancelled Alkaline Phosphatase Cancelled Total Protein Cancelled Albumin Cancelled Hep Bs Antigen Negative Hep Bs Antibody NONREACTIVE Hep B Core Total Ab Nonreactive Hepatitis C Ab (EIA) Nonreactive 02/16/22 06:06 PT INR Anion Gap 14 Estim Creat Clear Calc 142.5 Estimated GFR > 60 Random Glucose 118 H Calcium 9.3 Total Bilirubin 2.5 H Direct Bilirubin 1.7 H AST 513 H ALT 575 H Alkaline Phosphatase 201 H D Total Protein 6.9 Albumin 4.1 Hep Bs Antigen Hep Bs Antibody Hep B Core Total Ab Hepatitis C Ab (EIA) <Marion Brink PA-C - Last Filed: 02/16/22 14:44> Procedures Date of Service Date of Service: 02/16/22 <Shadi Santoro MD - Last Filed: 02/16/22 09:56> Progress Note: A&P Assessment and plan (1) Choledocholithiasis: Status: Acute <Marion Brink PA-C - Last Filed: 02/16/22 14:44> Assessment and Plan: states she is comfortable this morning lap choly done yesterday - cholangiogram showed contrast was not going into the duodenum bilirubin elevated this morning MRCP does not show obvious the stones GI consulted - for ERCP follow LFTs patient otherwise comfortable looks well abdomen soft and benign drain in place seen and examined independently - agree with VELIA Brink <Shadi Santoro MD - Last Filed: 02/16/22 09:56> (2) Transaminitis: Status: Acute <Marion Brink PA-C - Last Filed: 02/16/22 14:44> (3) S/P laparoscopic cholecystectomy: Status: Acute <Marion Brink PA-C - Last Filed: 02/16/22 14:44> Assessment and Plan: 21 year old female admitted with RUQ pain, transaminitis thought to have biliary colic with likely passed CBD stone. She underwent lap CCY with IOC yesterday. IOC showed filling defect in distal CBD without filling of duodenum. Subsequent MRCP showed no biliary ductal dilatation or intraluminal filling defect within the common bile duct. Bilirubin is trending up this morning. She was seen by GI who plan for a ERCP later today. Will keep NPO, on IVF. Further plan following ERCP. <Marion Brink PA-C - Last Filed: 02/16/22 14:44> Time Spent With Patient Time: Total time spent is greater than 50% in coordination of care (as documented) at patient's floor/unit and/or counseling patient: <Marion Brink PA-C - Last Filed: 02/16/22 14:44> Quality Stroke Does the patient have a stroke diagnosis?: No <Marion Brink PA-C - Last Filed: 02/16/22 14:44> VTE Prior VTE?: No <Marion Brink PA-C - Last Filed: 02/16/22 14:44> VTE Risk Level:: Medical - low <Marion Brink PA-C - Last Filed: 02/16/22 14:44> VTE Device Contraindication: N/A - Device Ordered <SHRUTHI Reyes Last Filed: 02/16/22 14:44> VTE Drug Contraindication: N/A - Med Ordered <Marion Brink PA-C - Last Filed: 02/16/22 14:44>
--- NOTE | 2022-02-16 10:44 | HO.POSTANES ---
Post Anesthesia Evaluation Post Anesthesia Evaluation Vital Signs: Vital Signs Temp Pulse Resp BP Pulse Ox O2 Del Method 02/16/22 08:10 99.4 F 60 16 116/66 98 Room Air 02/16/22 00:08 97.5 F 58 18 118/62 98 Room Air Anesthesia: General Endotracheal-GETA Mental Status: Awake Pain Control: Satisfactory (incisional pain) Nausea/Vomiting: None Hydration: Adequate Anesthesia-Related Issues: No Anes. Related Issues
--- NOTE | 2022-02-16 11:23 | PC.NURSE ---
10 ML serosang. fluid drained from [place] at this time. Compressed after emptying
--- NOTE | 2022-02-16 12:10 | P.CONAN_ITS ---
HPI - Anesthesia Eval Consult details Narrative: 21 yo female patient for ERCP. S/p lap gonzalo yesterday [facility] Active Problems Active Problems: All Active Problems (Updated 02/16/22 @ 12:12 by Krissy Schwab MD) S/P laparoscopic cholecystectomy (Acute) Choledocholithiasis (Acute) Cholelithiasis (Acute) Transaminitis (Acute) Elevated glucose tolerance test (Acute) Fibroadenoma of right breast (Acute) Nausea and vomiting (Acute) Irregular menses (Acute) Abnormal ultrasound of breast (Acute) Post- 07/2021 Past Medical History Medical History Fibroadenoma of right breast No known health problems Functional capacity: independent ambulation Family History Family History Maternal Aunt Status post breast lumpectomy Family history of problems with anesthesia: No Surgical History Surgical History (Updated 02/16/22 @ 12:17 by Krissy Schwab MD) S/P laparoscopic cholecystectomy History of Problems with Anesthesia: No Social History Social History Household Members: Family Housing: Apartment Do you presently have visiting nurse or other home services: No Alcohol intake: never Patient Tobacco Use Status: Never used Tobacco Use of substances other than those prescribed or required for medical reasons: Yes Substance Use Type: Marijuana Substance Use Frequency: Daily Last Used Substance: Days (ago) Currently Displaying Signs/Symptoms of Drug Intoxication Withdrawal: No Have you been hit, kicked, punched, or otherwise hurt by someone within the past year? If so, by whom?: No Do you feel safe in your current relationship?: No Current Relationship Is there a partner from a previous relationship who is making you feel unsafe now?: No Are you made to feel afraid or neglected: No Are you DNR?: No Advance Directives: No Advance Directives Information Provided: No Do you have thoughts of harming others: None Do you have a plan to hurt others: No Plan Recently lost weight without trying: No How much weight loss: Not applicable Eating poorly because of decreased appetite: No Nutrition screen score: 0 Nutrition Risks: No Nutritional Risk Patient : No : No Poor oral hygiene: No service: No Current occupational status: employed Sexual orientation: Straight/Heterosexual Gender identity: Female Meds Allergies Allergy/AdvReac Type Severity Reaction Status Date / Time No Known Allergies Allergy Verified 02/16/22 11:24 [No Known Allergies*] Active Medications: Current Medications Acetaminophen (Acetaminophen 325 Mg Tablet) 650 mg PO Q6H PRN PRN Reason: fever, pain Dextrose/Sodium Chloride (D5ns) 1,000 mls @ 100 mls/hr IVCONT .Q10H [facility] Last Admin: 02/16/22 05:17 Dose: 100 mls/hr Morphine Sulfate (Morphine Sulfate 4 Mg/Ml Cartridge) 4 mg IVPUSH Q4H PRN; Protocol PRN Reason: Pain, Severe (Pain Scale 7-10) Last Admin: 02/15/22 22:12 Dose: 4 mg Ondansetron HCl (Ondansetron Hcl 4 Mg/2 Ml Vial) 4 mg IVPUSH Q8H PRN PRN Reason: Nausea and Vomiting Oxycodone HCl (Oxycodone Hcl Immed Release 5 Mg Tablet) 5 mg PO Q4H PRN PRN Reason: Pain, Moderate (Pain Scale 4-6 Last Admin: 02/15/22 20:21 Dose: 5 mg Sodium Chloride (0.9 % Sodium Chloride Flush 3 Ml Sy[facility]) [facility] Last Admin: 02/16/22 07:59 Dose: Not Given Home Medications Medication Instructions Recorded Confirmed Last Taken Type No Known Home Meds 02/13/22 02/13/22 Unknown History Exam Exam Date and Time: February 16, 2022 1210 Height,Weight and Vital Signs: Height 5 ft 4 in Weight 81.647 kg Last Vital Signs Temp 99.6 F 02/16/22 11:14 Pulse 66 02/16/22 11:14 Resp 16 02/16/22 11:14 BP 113/72 02/16/22 11:14 Pulse Ox 99 02/16/22 11:14 O2 Del Method 02/16/22 11:14 O2 Flow Rate 6 02/15/22 16:38 Pertinent Lab Results Pertinent Lab Results: Laboratory Tests 02/13/22 02/13/22 02/13/22 09:51 09:51 09:51 WBC 4.6 L RBC 5.22 D Hgb 13.6 D Hct 42.6 D MCV 81.6 MCH 26.1 L MCHC 31.9 RDW 13.3 Plt Count 287 MPV 9.7 Immature Gran % (Auto) 0.2 Neut % (Auto) 73.2 H Lymph % (Auto) 20.9 Walton % (Auto) 4.7 Eos % (Auto) 0.6 Baso % (Auto) 0.4 Lymph # (Auto) 1.0 L Walton # (Auto) 0.2 Eos # (Auto) 0.0 Baso # (Auto) 0.0 Abs Immat Gran (auto) 0.01 Absolute Neuts (auto) 3.4 Absolute Nucleated RBC 0.000 Nucleated RBC % (auto) 0.0 Neutrophils % (Manual) Band Neutrophils % Lymphocytes % (Manual) Monocytes % (Manual) Eosinophils % (Manual) Basophils % (Manual) Abs Neuts (Manual) Lymphocytes # (Manual) Monocytes # (Manual) Eosinophils # (Manual) Platelet Estimate Plt Morphology Comment RBC Morphology PT INR Sodium 138 Potassium 4.1 Chloride 105 Carbon Dioxide 23 Anion Gap 14 BUN 7 L Creatinine 0.72 Estim Creat Clear Calc 126.7 Estimated GFR > 60 Random Glucose 117 H Calcium 9.5 Total Bilirubin 2.5 H Direct Bilirubin AST 478 H ALT 723 H Alkaline Phosphatase 228 H Total Protein 7.6 Albumin 4.6 Lipase 15 Urine Color Urine Appearance Urine pH Ur Specific Kennard Urine Protein Urine Glucose (UA) Urine Ketones Urine Blood Urine Nitrite Ur Leukocyte Esterase Urine RBC Urine WBC Ur Squamous Epith Cells Urine Bacteria Hyaline Casts Urine Test Salicylates < 5.0 L Acetaminophen < 1 Ethyl Alcohol < 10 COVID-19 ([facility]IA) COVID-19 Clin Com Hep Bs Antigen Negative Hep Bs Antibody NONREACTIVE Hep B Core Total Ab Nonreactive Hepatitis C Ab (EIA) Nonreactive 02/13/22 02/13/22 02/13/22 10:23 10:24 12:25 WBC RBC Hgb Hct MCV MCH MCHC RDW Plt Count MPV Immature Gran % (Auto) Neut % (Auto) Lymph % (Auto) Walton % (Auto) Eos % (Auto) Baso % (Auto) Lymph # (Auto) Walton # (Auto) Eos # (Auto) Baso # (Auto) Abs Immat Gran (auto) Absolute Neuts (auto) Absolute Nucleated RBC Nucleated RBC % (auto) Neutrophils % (Manual) Band Neutrophils % Lymphocytes % (Manual) Monocytes % (Manual) Eosinophils % (Manual) Basophils % (Manual) Abs Neuts (Manual) Lymphocytes # (Manual) Monocytes # (Manual) Eosinophils # (Manual) Platelet Estimate Plt Morphology Comment RBC Morphology PT INR Sodium Potassium Chloride Carbon Dioxide Anion Gap BUN Creatinine Estim Creat Clear Calc Estimated GFR Random Glucose Calcium Total Bilirubin Direct Bilirubin AST ALT Alkaline Phosphatase Total Protein Albumin Lipase Urine Color Dark Yellow Urine Appearance Cloudy Urine pH 8.0 Ur Specific Kennard 1.015 Urine Protein Negative Urine Glucose (UA) Negative Urine Ketones Negative Urine Blood Negative Urine Nitrite Negative Ur Leukocyte Esterase Small (1+) H Urine RBC 0-2 Urine WBC 0-5 Ur Squamous Epith Cells 3-5 Urine Bacteria Trace Hyaline Casts 0-2 Urine Test NEGATIVE Salicylates Acetaminophen Ethyl Alcohol COVID-19 ([facility]) Negative COVID-19 Clin Com See Note Hep Bs Antigen Hep Bs Antibody Hep B Core Total Ab Hepatitis C Ab (EIA) 02/14/22 02/14/22 02/15/22 08:54 08:54 05:06 WBC 4.4 L RBC 4.71 Hgb 12.6 Hct 39.0 MCV 82.8 MCH 26.8 L MCHC 32.3 RDW 13.3 Plt Count 243 MPV 9.5 Immature Gran % (Auto) Neut % (Auto) Lymph % (Auto) Walton % (Auto) Eos % (Auto) Baso % (Auto) Lymph # (Auto) Walton # (Auto) Eos # (Auto) Baso # (Auto) Abs Immat Gran (auto) Absolute Neuts (auto) Absolute Nucleated RBC 0.000 Nucleated RBC % (auto) 0.0 Neutrophils % (Manual) 55 Band Neutrophils % 0 L Lymphocytes % (Manual) 28 Monocytes % (Manual) 13 H Eosinophils % (Manual) 3 Basophils % (Manual) 1 Abs Neuts (Manual) 2.4 Lymphocytes # (Manual) 1.2 Monocytes # (Manual) 0.6 Eosinophils # (Manual) 0.1 Platelet Estimate NORMAL Plt Morphology Comment NORMAL RBC Morphology NORMAL PT INR Sodium 139 140 Potassium 3.9 4.0 Chloride 109 H 111 H Carbon Dioxide 20 L 20 L Anion Gap 14 13 BUN 6 L 5 L Creatinine 0.70 0.69 Estim Creat Clear Calc 130.3 132.2 Estimated GFR > 60 > 60 Random Glucose 106 111 Calcium 8.8 D 8.8 Total Bilirubin 0.9 0.7 Direct Bilirubin AST 143 H 73 H ALT 458 H 317 H Alkaline Phosphatase 189 H 161 H Total Protein 6.5 6.1 L Albumin 4.0 3.7 Lipase Urine Color Urine Appearance Urine pH Ur Specific Kennard Urine Protein Urine Glucose (UA) Urine Ketones Urine Blood Urine Nitrite Ur Leukocyte Esterase Urine RBC Urine WBC Ur Squamous Epith Cells Urine Bacteria Hyaline Casts Urine Test Salicylates Acetaminophen Ethyl Alcohol COVID-19 ([facility]) COVID-19 Clin Com Hep Bs Antigen Hep Bs Antibody Hep B Core Total Ab Hepatitis C Ab (EIA) 02/16/22 02/16/22 02/16/22 06:06 06:06 06:06 WBC RBC Hgb Hct MCV MCH MCHC RDW Plt Count MPV Immature Gran % (Auto) Neut % (Auto) Lymph % (Auto) Walton % (Auto) Eos % (Auto) Baso % (Auto) Lymph # (Auto) Walton # (Auto) Eos # (Auto) Baso # (Auto) Abs Immat Gran (auto) Absolute Neuts (auto) Absolute Nucleated RBC Nucleated RBC % (auto) Neutrophils % (Manual) Band Neutrophils % Lymphocytes % (Manual) Monocytes % (Manual) Eosinophils % (Manual) Basophils % (Manual) Abs Neuts (Manual) Lymphocytes # (Manual) Monocytes # (Manual) Eosinophils # (Manual) Platelet Estimate Plt Morphology Comment RBC Morphology PT 13.1 INR 1.1 Sodium Cancelled 140 Potassium Cancelled 4.3 Chloride Cancelled 107 Carbon Dioxide Cancelled 23 Anion Gap Cancelled 14 BUN Cancelled 4 L Creatinine Cancelled 0.64 Estim Creat Clear Calc Cancelled 142.5 Estimated GFR Cancelled > 60 Random Glucose Cancelled 118 H Calcium Cancelled 9.3 Total Bilirubin Cancelled 2.5 H Direct Bilirubin 1.7 H AST Cancelled 513 H ALT Cancelled 575 H Alkaline Phosphatase Cancelled 201 H D Total Protein Cancelled 6.9 Albumin Cancelled 4.1 Lipase Urine Color Urine Appearance Urine pH Ur Specific Kennard Urine Protein Urine Glucose (UA) Urine Ketones Urine Blood Urine Nitrite Ur Leukocyte Esterase Urine RBC Urine WBC Ur Squamous Epith Cells Urine Bacteria Hyaline Casts Urine Test Salicylates Acetaminophen Ethyl Alcohol COVID-19 ([facility]) COVID-19 Clin Com Hep Bs Antigen Hep Bs Antibody Hep B Core Total Ab Hepatitis C Ab (EIA) Airway Mallampati Class: II TM Dist: >3cm Neck ROM: Full Loose/Missing/Broken Teeth: No (Denies broken or loose teeth) Heart: RRR Lungs: CTAB Assessment and Plan Assessment Anesthesia Assessment: Anesthesia Plan Discussed and Chart Reviewed Final Anesthetic Review Family History of Problems with Anesthesia: No History of Problems with Anesthesia: No NPO: Yes ASA Class: II and Emergency Final Preanesthetic Review: No Changes in Pt Med Stat, Meds/Allgs Chart Reviewed, Consent Obtained/Reviewed and Anes Risks/Benef Reviewed Patient Risk: Low Procedure Risk: Low Assessment/Block/Sedation in SS: Assess/Block/Sedation-SS Anesthetic Plan Anesthetic Plan: GA Disposition: Standard PACU and Inp. Admit - Standard Bed
--- NOTE | 2022-02-16 13:27 | P.BOP_ITS ---
Brief Operative Note Date of Service: 02/16/22 Pre-op diagnosis: abnormal cholangiogram Post-op diagnosis: other (normal ercp) Procedure: ercp Surgeon: Douglas Starks Anesthesia: GETA Was an [employer] Age Program Associate used for this Procedure?: No Estimated blood loss (mL): 0 Pathology: none sent Condition: stable Disposition: PACU
--- NOTE | 2022-02-16 13:29 | PM.EVENT ---
Event Note Date of Service: 02/16/22 Event Note: ERCP note dictated Initial cholangiogram questioned a small distal filling defect. CBD swept multiple times after sphincterotomy no stone seen good post procedure drainage. rec: advance diet d/c when stable
--- NOTE | 2022-02-16 14:22 | PM.EVENT ---
Event Note Date of Service: 02/16/22 Event Note: Underwent ERCP Discussed with Dr. Starks - no stones seen in the CBD, sphincterotomy done Patient comfortable Restart diet Repeat LFTs in a.m. Abdominal exam benign Likely DC home tomorrow Explained plan to patient
[2022-02-16] MEDS: Lactated Ringers 1,000 ML 100 ML IVCONT ×2 (16:03→23:54)
[2022-02-16] MEDS: 0.9 % Sodium Chloride Flush 3 ML SYRINGE IVFLUSH (16:03)
[2022-02-16] MEDS: oxyCODONE HCl Immed Release 5 MG TABLET PO (20:04)
--- NOTE | 2022-02-16 20:39 | CONS_ITS ---
DATE OF SERVICE: 02/16/2022 REASON FOR CONSULTATION: Elevated LFTs and history of gallstones. HISTORY OF PRESENT ILLNESS: History from patient, medical staff, and the EMR. The patient is a 21-year-old female who is 1 day status post laparoscopic cholecystectomy for symptomatic gallstones. Preoperatively, she did have elevated LFTs and a common bile duct of 5 mm noted on ultrasound. However, the LFTs did improve preoperatively. She underwent surgery yesterday and intraoperative cholangiogram did not reveal any definitive filling defects in the bile duct, but did show nonvisualization of the duodenum despite attempts at doing some limited common duct exploration and trying to clear the duct. An intraabdominal drain was left in. Overnight, the patient reports that she has been feeling well other than some expected abdominal soreness from the surgery. She has not noticed any dark urine nor other signs of jaundice. She has been afebrile. She does report that she had been having gallbladder issues during her and then intermittently . She never experienced any jaundice at home. She denies a previous history of liver disease in herself, nor family members. She does not use any alcohol. She does smoke marijuana but does not use any other drugs. MEDICATIONS: At home, none. Medications here in the hospital include only acetaminophen p.r.n., morphine p.r.n., Zofran p.r.n., and oxycodone p.r.n. PAST MEDICAL HISTORY: She had a benign breast biopsy. Laparoscopic cholecystectomy yesterday. She denies any medical problems such as diabetes, asthma, hypertension, or heart disease. SOCIAL HISTORY: She had a baby boy this past July. She works in a retail store. She does not smoke cigarettes, nor use any significant amounts of alcohol. She does use marijuana daily. FAMILY HISTORY: Noncontributory. REVIEW OF SYSTEMS: CONSTITUTIONAL: In general, she had been feeling well with good energy, good appetite. SKIN: No rash, no pruritus. CARDIAC: No chest pain. PULMONARY: No cough, no hemoptysis. GI: Abdominal pain in relation gallstones as above. She denies any history of significant heartburn, dysphagia, or change in bowel habits. PHYSICAL EXAMINATION: GENERAL: The patient is a pleasant, alert, comfortable-appearing female. Anicteric sclera. NECK: Supple. CHEST: Clear. CARDIAC: Normal S1, S2. ABDOMEN: Soft, nondistended with normal bowel sounds. EXTREMITIES: No edema. LABORATORY DATA: I did review her MRCP, which does not show any sign of definitive filling defects. There is no evidence of any intraabdominal fluid collections. White blood cell count 4.4, hemoglobin 12.6, platelets 243,000. PT 13.1 with INR 1.1. Normal electrolytes. BUN 4, creatinine 0.6. Liver profile yesterday showed a total bilirubin 0.7 and alkaline phosphatase 161. Liver profile this morning shows a total bilirubin of 2.5, direct bilirubin 1.7, AST 513, ALT 575, and alkaline phosphatase 201. Albumin is 4.1. Hepatitis B antigen and hepatitis C antibody negative. On the radiologist's review of the intraoperative cholangiogram, they do describe distal obstruction without any filling in the small bowel and they do describe a meniscus in the distal bile duct which could represent an obstructing stone. IMPRESSION: Given the patient's clinical history of a recurrent rise in her LFTs, small gallstones in the gallbladder that was removed, and the findings on the intraoperative cholangiogram, I would recommend ERCP for further evaluation and treatment. This will be done either by myself or Dr. Starks. Full consent was obtained from the patient for this, including risks of bleeding, perforation, cholangitis, and pancreatitis. This has been discussed with her and she is comfortable with the plan. Thank you for the consultation MD HALI Guillermo/SHAUNA / [id number]
[2022-02-17] VITALS: BP 113/60; PULSE 66; RESP 18; TEMP 36.9; O2SAT 97
--- NOTE | 2022-02-17 03:10 | OP_ITS ---
SURGEON: Douglas Starks MD INDICATIONS: Abnormal cholangiogram. PREOPERATIVE DIAGNOSIS: POSTOPERATIVE DIAGNOSIS: PROCEDURE PERFORMED: ESTIMATED BLOOD LOSS: COMPLICATIONS: ANESTHESIA: Monitored general anesthesia. ASSISTANTS: SPECIMENS: PROCEDURE: ERCP with sphincterotomy on 02/16/22. DESCRIPTION OF PROCEDURE: History and physical performed. The risks and benefits of the procedure were explained to the patient. Informed consent was obtained. The patient placed in the prone position with a wedge under the right shoulder. The Olympus therapeutic duodenoscope was introduced into the esophagus, stomach, and duodenum. Examination was performed. The scope was removed. She tolerated the procedure well and was taken to recovery in stable condition. FINDINGS: Endoscopy: Limited examination of the esophagus, stomach and duodenum was within normal limits. The major papilla was identified and was noted to drain copious amounts of clear yellow bile. A cholangiogram was obtained with a guidewire passed through a sphincterotome and cholangiography raises question of small filling defect in the distal duct. A sphincterotomy was performed to approximately 8 mm with no immediate complications. Next, a 9 to 12 mm balloon extraction catheter was used to sweep the duct multiple times. No stones were seen on extraction of the balloon catheter, there was excellent drainage of clear yellow bile at the termination of the procedure. No pancreatogram was attempted or obtained. IMPRESSION: Normal ERCP. RECOMMENDATION: Follow up as needed. MD RENÉ Briggs/SHAUNA / [id number] MTDD
[2022-02-17 04:00] VITALS: BP 113/68; PULSE 57; RESP 18; TEMP 36.5; O2SAT 97
[2022-02-17 07:02] LABS: Hematocrit 34.6 % (37.0-47.0); Hemoglobin 11.2 g/dl (12.0-16.0); Mean Corpuscular HGB Conc 32.4 g/dl (31.0-35.0); Mean Corpuscular Hemoglobin 26.4 pg (27.0-33.0); Mean Corpuscular Volume 81.6 fL (80.0-98.0); Mean Platelet Volume 10.2 fL (9.4-12.3); Platelet Count 235 X10*3/uL (160-400); Red Blood Count 4.24 X10*6/uL (4.20-5.50); Red Cell Distribution Width 13.2 % (11.0-16.0); White Blood Count 5.7 X10*3/uL (4.8-10.8)
[2022-02-17 07:22] VITALS: BP 123/66; PULSE 62; RESP 16; TEMP 37.1; O2SAT 99
[2022-02-17 07:31] LABS: Alanine Aminotransferase 366 U/L (0-31); Albumin Level 3.5 g/dL (3.5-5.0); Alkaline Phosphatase 180 U/L (39-117); Aspartate Amino Transferase 124 U/L (5-31); Bilirubin Direct 0.5 mg/dL (0.0-0.5); Bilirubin Total 0.7 mg/dL (0.0-1.0); Total Protein 5.7 g/dL (6.5-8.0)
--- NOTE | 2022-02-17 08:04 | PM.PNGS ---
Subjective Subjective Date of Service: 02/24/22 Interval history: feels well tolerating diet denies complaints ERCp yesterday - no CBD stome Physical Exam Vital Signs: Vital Signs: Last Vital Signs Temp 98.7 F 02/17/22 07:22 Pulse 62 02/17/22 07:22 Resp 16 02/17/22 07:22 BP 123/66 02/17/22 07:22 Pulse Ox 99 02/17/22 07:22 O2 Del Method 02/17/22 07:22 O2 Flow Rate 6 02/15/22 16:38 BMI result Body Mass Index 30.9 Const: General: comfortable and no acute distress Resp: Effort & Inspection: normal respiratory effort Cardio: Rate: regular rate GI: Other: dressings dry Palpation (GI): Soft to palpation, not firm and no guarding Objective Data Active Medications Acetaminophen (Acetaminophen 325 Mg Tablet) 650 mg PO Q6H PRN PRN Reason: fever, pain Fentanyl (Fentanyl Citrate/Pf 100 Mcg/2 Ml Vial) 25 mcg IVPUSH Q5M PRN; Protocol PRN Reason: Pain, Moderate (Pain Scale 4-6 Lactated Ringer's (Lr) 1,000 mls @ 100 mls/hr IVCONT .Q10H [facility] Last Admin: 02/16/22 23:54 Dose: 100 mls/hr Documented By: JIM Promethazine HCl 6.25 mg/ (Sodium Chloride) 50.25 mls @ 201 mls/hr IV ONCE PRN PRN Reason: Nausea and Vomiting Morphine Sulfate (Morphine Sulfate 4 Mg/Ml Cartridge) 4 mg IVPUSH Q4H PRN; Protocol PRN Reason: Pain, Severe (Pain Scale 7-10) Last Admin: 02/15/22 22:12 Dose: 4 mg Documented By: ZULEMA Ondansetron HCl (Ondansetron Hcl 4 Mg/2 Ml Vial) 4 mg IVPUSH Q8H PRN PRN Reason: Nausea and Vomiting Ondansetron HCl (Ondansetron Hcl 4 Mg/2 Ml Vial) 4 mg IVPUSH ONCE PRN PRN Reason: Nausea and Vomiting Oxycodone HCl (Oxycodone Hcl Immed Release 5 Mg Tablet) 5 mg PO Q4H PRN PRN Reason: Pain, Moderate (Pain Scale 4-6 Last Admin: 02/16/22 20:04 Dose: 5 mg Documented By: ZULEMA Oxycodone HCl (Oxycodone Hcl Immed Release 5 Mg Tablet) 5 mg PO ONCE PRN PRN Reason: Pain, Severe (Pain Scale 7-10) Sodium Chloride (0.9 % Sodium Chloride Flush 3 Ml Syringe) 3 ml IVFLUSH QSHIFT [facility] Last Admin: 02/17/22 01:40 Dose: Not Given Documented By: JIM Non-Admin Reason: IV Running Labs CBC & Chem 7: 02/17/22 06:11 02/16/22 06:06 Labs: Laboratory Results - last 24 hr 02/17/22 02/17/22 06:11 06:11 MCV 81.6 MCH 26.4 L MCHC 32.4 RDW 13.2 Plt Count 235 MPV 10.2 Absolute Nucleated RBC 0.000 Nucleated RBC % (auto) 0.0 Total Bilirubin 0.7 Direct Bilirubin 0.5 AST 124 H ALT 366 H Alkaline Phosphatase 180 H Total Protein 5.7 L Albumin 3.5 Procedures Date of Service Date of Service: 02/17/22 Progress Note: A&P Assessment and plan (1) S/P laparoscopic cholecystectomy: Status: Acute Assessment and Plan: bili now normal rest of LFTs much improved likely to have passed stone looks well dc drain ok to dc home instructions given to pt Time Spent With Patient Time: Total time spent is greater than 50% in coordination of care (as documented) at patient's floor/unit and/or counseling patient: Quality Stroke Does the patient have a stroke diagnosis?: No VTE Prior VTE?: No VTE Risk Level:: Medical - low VTE Device Contraindication: N/A - Device Ordered VTE Drug Contraindication: N/A - Med Ordered
[2022-02-17 08:06] LABS: ~Hepatitis A Antibody IgM Nonreactive (Nonreactive)
--- NOTE | 2022-02-17 08:17 | MHC.CM.PN ---
PATIENT IS DC HOME - SELF CARE. RN AWARE OF PLAN
--- NOTE | 2022-02-17 12:16 | PM.DS ---
DS: Providers Provider Date of Service: 02/17/22 Date of admission: 02/13/22 13:09 Date of discharge: 02/17/22 Primary care physician: [facility] Attending physician on admission: Geena Wilder Consults: 02/15/22 20:35 Consult to Gastroenterology Routine Consulting Provider: Misael Vogel Reason for consultation: elevated lfts cbd distension Has provider been notified: Yes Attending physician on discharge: Shadi Santoro DS: Diagnosis Discharge Diagnosis (1) S/P laparoscopic cholecystectomy: Status: Acute DS: Summary Hospital Course Hospital Course: BRIEF HPI: Chetna Dangelo is a 21 year old female who came to the ER 2 weeks ago with epigastric pain and sent home with diagnosis of gastritis and on PPI. not very helpful so she stopped . She then 2 days ago had chicken nuggets and woke up with pain in right side going to her back and nausea. Came to the ER and lfts noted to be very elevated and u/s showing cbd at 5mm for this 21 year old female which is large and she had stones in her GB. HOSPITAL COURSE: She was admitted to the surgical service under Dr. Wilder for further work up and treatment of the biliary colic and transaminitis. Her LFTs downtrended, so it was therefore thought that she had passed a CBD stone causing transient obstruction and elevation of her liver enzymes. She felt improved. It was recommended to proceed with lap cholecystectomy with IOC to prevent further recurrence and evaluate the CBD. She agreed and she was added onto the OR schedule for that day. On 02/15/22 a laparoscopic cholecystectomy with IOC was performed by Dr. Wilder without complication. A ANISA drain was left in placed. The IOC did show a filling defect in the CBD and the duodenum did not fill. GI consult was obtained and a subsequent MRCP was performed which was negative for no biliary ductal dilatation or intraluminal filling defect within the common bile duct. Bilirubin however began trending up the following morning. GI therefore recommended proceeding with ERCP. An ERCP with sphincterotomy was performed on 02/16/22 which was normal. Her diet was advanced to low fat. The following day her LFTs downtrended and bilirubin normalized. She was tolerating a solid diet without nausea or vomiting, her pain was well controlled on PO analgesics. Her abdomen was benign with clean incisions. Her ANISA drain was removed. She felt ready for discharge and was discharged to home on 02/17/22 in stable condition She is to follow up with Dr. Santoro in office in 2 weeks.? Status at Discharge Functional status at discharge: independent ambulation Overall status at discharge: patient is progressing back to baseline Time Spent with Patient Time attestation: Total time spent providing and/or coordinating discharge services: Discharge coordination time: Greater than 30 minutes Quality: Safe Use of Opioids Does Pt have an Active Cancer Diagnosis on the Problem List?: No Quality: Stroke Does the patient have a stroke diagnosis?: No Physical Exam Vital Signs: Vital Signs: Last Vital Signs Temp 98.7 F 02/17/22 07:22 Pulse 62 02/17/22 07:22 Resp 16 02/17/22 07:22 BP 123/66 02/17/22 07:22 Pulse Ox 99 02/17/22 07:22 O2 Del Method 02/17/22 07:22 O2 Flow Rate 6 02/15/22 16:38 BMI result Body Mass Index 30.9 Const: General: comfortable, no acute distress and alert Orientation/consciousness: patient oriented x3 Resp: Effort & Inspection: normal respiratory effort GI: Inspection: No distended and Yes incision (clean) Palpation (GI): Soft to palpation, Tenderness to palpation present (GI) (mild incisional), no guarding and not rigid Percussion: Yes normal to percussion Skin: General skin exam: no rashes or lesions noted Neuro: General: patient oriented x3 and moves all extremities Extrem: General: Yes no clubbing, cyanosis or edema DS: Data Data Completed and Pending Pending studies at discharge: Pending at discharge 02/15/22 16:02 Surgical [PTH] Routine Labs on day of discharge: Laboratory Results - last 24 hr 02/13/22 02/17/22 02/17/22 09:51 06:11 06:11 WBC 5.7 RBC 4.24 Hgb 11.2 L Hct 34.6 L MCV 81.6 MCH 26.4 L MCHC 32.4 RDW 13.2 Plt Count 235 MPV 10.2 Absolute Nucleated RBC 0.000 Nucleated RBC % (auto) 0.0 Total Bilirubin 0.7 Direct Bilirubin 0.5 AST 124 H ALT 366 H Alkaline Phosphatase 180 H Total Protein 5.7 L Albumin 3.5 Hepatitis A IgM Ab Nonreactive Discharge Plan Discharge Anticipated Discharge Date/Time: 02/17/22 10:04 Patient Disposition: Home, Self-Care Discharge Diagnosis: s/p laparoscopic cholecystectomy Referrals: [facility] [Primary Care Provider] - 1 Week Shadi Santoro MD [Physician] - 2 Weeks Discharge Medications: New oxycodone 5 mg tablet 5 mg PO Q4H PRN (Reason: pain (scale score 7-10)) Qty: 24 0RF Rx Instructions: Partial Fill upon patient request. ibuprofen 600 mg tablet 600 mg PO Q6H PRN (Reason: abdominal pain) Qty: 30 0RF Discharge Orders: Discharge Order (Routine); Ordered 02/17/22 Ordered By: Shadi Santoro Diet: Low fat, low cholesterol Activity on Discharge: No heavy lifting Stand Alone Forms: Patient Portal Discharge page Activity Restrictions/Additional Instructions: If the incision area is tender, you may apply an ice pack for short intervals (No more than 20 minutes on, followed by at least 20 minutes off). Do not apply heat. Do not use creams, lotions, or topical antibiotics unless instructed to do so by your surgeon. These can cause infection or allergic reaction. Ok to shower after your surgery. Follow up in office with Dr. Santoro in 2 weeks. ([phone]) No heavy lifting (>10-20lbs) or strenuous activity! Call Your Doctor If: -Your temperature exceeds 101.5? F -You experience excessive pain or swelling -You have an unexpected reaction to medication -You have excessive bleeding -You experience continued vomiting/nausea -Your incision begins to separate -Your incision shows signs of infection such as increased redness, swelling, excessive pain, drainage (light blood or clear fluid is normal) or heat Care Plan Goals: Return to baseline health and gradual return to activity following recovery period. Health Concerns: elevated LFTs gallstones Plan of Treatment: s/p cholecystectomy, ERCP advance diet pain control Assessment: Doing well post op Discharge Date/Time: 02/17/22 09:35
--- NOTE | 2022-02-17 14:39 | HO.POSTANES ---
Post Anesthesia Evaluation Post Anesthesia Evaluation Vital Signs: Vital Signs Temp Pulse Resp BP Pulse Ox O2 Del Method 02/17/22 07:22 98.7 F 62 16 123/66 99 Room Air 02/17/22 04:00 97.7 F 57 18 113/68 97 Room Air Anesthesia: General Endotracheal-GETA Mental Status: Awake Pain Control: Satisfactory Nausea/Vomiting: None Hydration: Adequate Anesthesia-Related Issues: No Anes. Related Issues
== END 2022-02-17 09:35 | disposition home or self-care (01) | DRG 263 ==
LOC: HO.ED 12:15 → HO.EDOVER 13:24 → HO.S3 14:37
PROVIDERS: Internal Medicine; Internal Medicine Gastroenterology; Nurse Practitioner Family; Surgery; Admitting Provider Surgery; Emergency Provider Emergency Medicine; Visit Provider Surgery
PROC: 0FT44ZZ Resection of Gallbladder, Percutaneous Endoscopic Approach (ICD-10-PCS; CPT 47562; principal; 2022-02-15 13:40)
PROC: 0F798ZZ Dilation of Common Bile Duct, Via Natural or Artificial Opening Endoscopic (ICD-10-PCS; CPT 43260; principal; 2022-02-16 11:50)
DX: K80.45 Calculus of bile duct with chronic cholecystitis with obstruction (principal); Z20.822 Contact with and (suspected) exposure to COVID-19
CPT/HCPCS: 36415; 74181; 76705; 80053; 80076; 80143; 80179; 81001; 81025; 82077; 83690; 85007; 85025; 85027; 85610; 86704; 86706; 86709; 86803; 87086; 87340; 87635; 88304; 99285; C1726; C1769; J0690; J1100; J1170; J1610; J1956; J2250; J2270; J2405; J2543; J2795; J3010; Q9967

== ENCOUNTER 2022-06-18 12:13 | Outpatient (REF) | payer MEDICAID, SELFPAY ==
--- NOTE | ~2022-06-18 | US_ITS ---
EXAMINATION: US OBSTETRICAL ULTRASOUND CLINICAL INFORMATION: Hemorrhage in early . COMPARISON: None. LMP: 04/06/2022. Gestational age by maternal dates is 9 weeks 2 days. Estimated date of delivery by maternal dates is 01/19/2023. TECHNIQUE: Ultrasound of the maternal pelvis is performed using transabdominal transducer. M-mode Doppler is also performed. FINDINGS: There is a single intrauterine gestational sac with visible yolk sac, embryo/fetus, and cardiac activity. There is no significant subchorionic hemorrhage or hematoma. HR: 158 beats per minute. CRL (crown rump length): 1.05 cm (7 weeks 2 days +/- 4 days). TERRY (estimated date of delivery): 02/02/2023 +/- 4 days. MATERNAL ADNEXA: The right maternal ovary measures 4.6 x 2.6 x 2.8 cm. 2.5 cm probable corpus luteum noted. The left maternal ovary measures 3.8 x 2 x 2.9 cm. There is no significant maternal adnexal mass. No maternal pelvic ascites. US/US OB <= 14 weeks fetus IMPRESSION: 1. Single intrauterine gestation with ultrasound gestational age of 7 weeks 2 days +/- 4 days. 2. Estimated date of delivery is 02/02/2023 +/- 4 days. 3. No maternal adnexal mass or pelvic ascites.
[2022-06-18 14:17] LABS: HCG Quantitative 13105 mIU/mL
[2022-06-19 03:23] LABS: CT PCR NOT DETECTED (Not Detect.); NG PCR NOT DETECTED (Not Detect.)
[2022-06-19 11:35] LABS: BV Int Neg Control Negative (Negative); BV Int Pos Control Positive (Positive)
== END 2022-06-18 12:14 | disposition home or self-care (01) ==
LOC: HO.LAB 12:13
PROVIDERS: Visit Provider Advanced Practice Midwife
DX: O20.9 Hemorrhage in early pregnancy, unspecified (principal)
CPT/HCPCS: 0353U; 36415; 76801; 84702; 87480; 87510; 87660; 96372; 99212; J2790

== ENCOUNTER 2022-06-18 13:29 | Outpatient (REF) | payer MEDICAID, SELFPAY | END 2022-06-18 13:30 | disposition home or self-care (01) | LOC: HO.LNP 13:29 | PROVIDERS: Visit Provider Advanced Practice Midwife | DX: Z13.89 Encounter for screening for other disorder (principal) ==

== ENCOUNTER 2022-06-23 11:47 | Outpatient (REF) | payer MEDICAID, SELFPAY ==
--- NOTE | ~2022-06-23 | US_ITS ---
EXAMINATION: US OBSTETRICAL ULTRASOUND CLINICAL INFORMATION: Hemorrhage in early . COMPARISON: None. LMP: 04/14/2022. Gestational age by maternal dates is 10 weeks and 0 days. Estimated date of delivery by maternal dates is 01/19/2023. TECHNIQUE: Transabdominal imaging of pelvis is performed. FINDINGS: There is a single intrauterine gestational sac with visible yolk sac, embryo/fetus, and cardiac activity. There is a heterogeneous area adjacent to the gallbladder suspicious for subchorionic hemorrhage or hematoma. HR: 174 beats per minute. CRL (crown rump length): 1.63 cm (8 weeks 1 day +/- 4 days). TERRY (estimated date of delivery): 02/01/2023 +/- 4 days. MATERNAL ADNEXA: The right maternal ovary measures 3.78 x 2.77 x 3.51 cm. There is a corpus luteal cyst measuring 2.5 x 2.0 x 1.8 cm. The left maternal ovary measures 2.96 x 2.56 x 2.74 cm. No focal cysts seen. There is no significant maternal adnexal mass. No maternal pelvic ascites. US/US OB <= 14 weeks fetus IMPRESSION: 1. Single intrauterine gestation with ultrasound gestational age of 8 weeks 1 day +/- 4 days. 2. Estimated date of delivery is 02/01/2023 +/- 4 days. 3. Suspect small subchorionic hemorrhage adjacent to the gestational sac.
== END 2022-06-23 11:48 | disposition home or self-care (01) ==
LOC: HO.HMGCX 11:47
PROVIDERS: Visit Provider Advanced Practice Midwife
DX: O20.9 Hemorrhage in early pregnancy, unspecified (principal)
CPT/HCPCS: 76801

== ENCOUNTER → 2022-06-25 15:01 | Outpatient (BNVA) | payer MEDICAID, SELFPAY | PROVIDERS: Visit Provider Advanced Practice Midwife | DX: Z71.2 Person consulting for explanation of examination or test findings (principal); O20.9 Hemorrhage in early pregnancy, unspecified; Z3A.08 8 weeks gestation of pregnancy | CPT/HCPCS: 99212 ==

== ENCOUNTER 2022-06-28 09:17 | Outpatient (REF) | payer MEDICAID, SELFPAY ==
--- NOTE | ~2022-06-28 | US_ITS ---
EXAMINATION: US OBSTETRICAL ULTRASOUND CLINICAL INFORMATION: Hemorrhage in early . COMPARISON: 06/23/2022. LMP: 04/14/2022. Gestational age by maternal dates is 10 weeks 5 days. Estimated date of delivery by maternal dates is 01/19/2023. TECHNIQUE: Ultrasound of the maternal pelvis is performed using transabdominal transducer. M-mode Doppler is also performed. FINDINGS: There is a single intrauterine gestational sac with visible yolk sac, embryo/fetus, and cardiac activity. There is no significant subchorionic hemorrhage or hematoma. HR: 179 beats per minute. CRL (crown rump length): 2.37 cm (9 weeks 1 day +/- 4 days). TERRY (estimated date of delivery): 01/30/2013 +/- 4 days. MATERNAL ADNEXA: The right maternal ovary measures 3.6 x 3.6 x 3 cm. Corpus luteum noted. The left maternal ovary measures 3.7 x 3.2 x 2.4 cm. There is no significant maternal adnexal mass. No maternal pelvic ascites. US/US OB pelvic and transvaginal IMPRESSION: 1. Single intrauterine gestation with ultrasound gestational age of 9 weeks 1 day +/- 4 days. 2. Estimated date of delivery is 01/30/2013 +/- 4 days. 3. No maternal adnexal mass or pelvic ascites.
[2022-06-28 11:24] LABS: Hematocrit 36.5 % (37.0-47.0); Mean Corpuscular HGB Conc 32.9 g/dl (31.0-35.0); Mean Corpuscular Hemoglobin 27.1 pg (27.0-33.0); Mean Corpuscular Volume 82.4 fL (80.0-98.0); Mean Platelet Volume 9.7 fL (9.4-12.3); Platelet Count 323 X10*3/uL (160-400); Red Blood Count 4.43 X10*6/uL (4.20-5.50); Red Cell Distribution Width 12.7 % (11.0-16.0)
== END 2022-06-28 09:18 | disposition home or self-care (01) ==
LOC: HO.US 09:17
PROVIDERS: Visit Provider Obstetrics & Gynecology
DX: O20.9 Hemorrhage in early pregnancy, unspecified (principal); O34.40 Maternal care for other abnormalities of cervix, unspecified trimester; N84.1 Polyp of cervix uteri
CPT/HCPCS: 36415; 76801; 76817; 85027; 99212

== ENCOUNTER 2022-07-01 11:52 | Outpatient (REF) | payer MEDICAID, SELFPAY ==
[2022-07-01 13:51] LABS: HCG Quantitative 5140 mIU/mL
[2022-07-01 14:55] LABS: Hematocrit 30.9 % (37.0-47.0); Hemoglobin 10.1 g/dl (12.0-16.0); Mean Corpuscular HGB Conc 32.7 g/dl (31.0-35.0); Mean Corpuscular Hemoglobin 27.3 pg (27.0-33.0); Mean Corpuscular Volume 83.5 fL (80.0-98.0); Mean Platelet Volume 9.3 fL (9.4-12.3); Platelet Count 323 X10*3/uL (160-400); Red Cell Distribution Width 12.9 % (11.0-16.0); White Blood Count 16.7 X10*3/uL (4.8-10.8)
[2022-07-01 15:19] LABS: HCG Quantitative 5122 mIU/mL
== END 2022-07-01 11:53 | disposition home or self-care (01) ==
LOC: HO.LAB 11:52
PROVIDERS: Visit Provider Obstetrics & Gynecology
DX: O03.9 Complete or unspecified spontaneous abortion without complication (principal)
CPT/HCPCS: 36415; 76801; 84702; 85027; 88305; 99212

== ENCOUNTER 2022-07-01 13:36 | Outpatient (REF) | payer MEDICAID, SELFPAY ==
--- NOTE | ~2022-07-01 | US_ITS ---
EXAMINATION: US OBSTETRICAL ULTRASOUND CLINICAL INFORMATION: History of hemorrhage during early . COMPARISON: 06/23/2022 and 06/28/2022. TECHNIQUE: Sonographic imaging of the pelvis is performed using a transabdominal transducer. FINDINGS: The anteflexed uterus has normal myometrial echotexture. No leiomyoma. The endometrium has homogeneous echotexture and measures up to 1.8 cm AP thickness. The previously observed intrauterine is no longer identified. No evidence of retained products of conception. No adnexal masses. The ovaries have normal size and echotexture. The right ovary is 2.8 x 2.4 x 2.5 cm, volume of 8.9 mL. The left ovary is 3.6 x 1.9 x 2.6 cm, volume of 9.3 mL. No pelvic free fluid. US/US OB <= 14 weeks fetus IMPRESSION: Given the history of hemorrhage during early , findings are consistent with recent spontaneous . There are no retained products of conception.
== END 2022-07-01 13:37 | disposition home or self-care (01) ==
LOC: HO.US 13:36
PROVIDERS: PCP Family Medicine; Visit Provider Obstetrics & Gynecology
DX: O20.9 Hemorrhage in early pregnancy, unspecified (principal)
CPT/HCPCS: 76801

== ENCOUNTER 2022-07-01 14:35 | Outpatient (REF) | payer MEDICAID, SELFPAY | END 2022-07-01 14:36 | disposition home or self-care (01) | LOC: HO.LNP 14:35 | PROVIDERS: Visit Provider Obstetrics & Gynecology | DX: O03.9 Complete or unspecified spontaneous abortion without complication (principal) | CPT/HCPCS: 88305 ==

== ENCOUNTER 2022-07-07 10:58 | Outpatient (REF) | payer MEDICAID, SELFPAY | END 2022-07-07 10:59 | disposition home or self-care (01) | LOC: HO.LAB 10:58 | PROVIDERS: Visit Provider Obstetrics & Gynecology | DX: Z13.89 Encounter for screening for other disorder (principal) ==

== ENCOUNTER 2022-07-14 11:04 | Outpatient (REF) | payer MEDICAID, SELFPAY ==
[2022-07-14 12:36] LABS: HCG Quantitative 76 mIU/mL
[2022-07-15 06:25] LABS: CT PCR NOT DETECTED (Not Detect.); NG PCR NOT DETECTED (Not Detect.)
[2022-07-15 09:16] LABS: BV Int Neg Control Negative (Negative); BV Int Pos Control Positive (Positive)
== END 2022-07-14 11:05 | disposition home or self-care (01) ==
LOC: HO.LAB 11:04
PROVIDERS: Visit Provider Obstetrics & Gynecology
DX: O03.9 Complete or unspecified spontaneous abortion without complication (principal)
CPT/HCPCS: 0353U; 36415; 84702; 87480; 87510; 87660; 99212

== ENCOUNTER 2022-07-14 12:24 | Outpatient (REF) | payer MEDICAID, SELFPAY | END 2022-07-14 12:25 | disposition home or self-care (01) | LOC: HO.LNP 12:24 | PROVIDERS: Visit Provider Obstetrics & Gynecology | DX: Z13.89 Encounter for screening for other disorder (principal) ==

== ENCOUNTER 2022-07-29 15:14 | Outpatient (REF) | payer MEDICAID, SELFPAY ==
[2022-07-29 16:39] LABS: HCG Quantitative 8 mIU/mL
[2022-07-30 08:30] LABS: HBsAGNum1 0.32 S/CO (0.00-0.99); HIV AB/AG Nonreactive (Nonreactive); HIV Num 1 0.09 S/CO (0.00-0.99); Hepatitis B Surface Antigen Negative (Negative); ~HepC Num1 0.13 S/CO (0.00-0.79); ~Hepatitis C Antibody Nonreactive (Nonreactive)
[2022-07-30 08:48] LABS: Syphilis Screen Nonreactive (Nonreactive)
== END 2022-07-29 15:15 | disposition home or self-care (01) ==
LOC: HO.LAB 15:14
PROVIDERS: Visit Provider Obstetrics & Gynecology
DX: O03.9 Complete or unspecified spontaneous abortion without complication (principal); Z72.51 High risk heterosexual behavior
CPT/HCPCS: 36415; 81025; 84702; 86780; 86803; 87340; 87389; 99212

== ENCOUNTER 2022-08-09 15:22 | Outpatient (REF) | payer MEDICAID, SELFPAY ==
[2022-08-09 15:56] LABS: Hematocrit 36.4 % (37.0-47.0); Hemoglobin 11.3 g/dl (12.0-16.0); Mean Corpuscular Hemoglobin 25.5 pg (27.0-33.0); Mean Corpuscular Volume 82.2 fL (80.0-98.0); Mean Platelet Volume 9.8 fL (9.4-12.3); Platelet Count 341 X10*3/uL (160-400); Red Blood Count 4.43 X10*6/uL (4.20-5.50); Red Cell Distribution Width 13.3 % (11.0-16.0); White Blood Count 7.1 X10*3/uL (4.8-10.8)
[2022-08-09 16:36] LABS: HCG Quantitative 3 mIU/mL
== END 2022-08-09 15:23 | disposition home or self-care (01) ==
LOC: HO.LAB 15:22
PROVIDERS: Visit Provider Obstetrics & Gynecology
DX: O03.9 Complete or unspecified spontaneous abortion without complication (principal)
CPT/HCPCS: 36415; 84702; 85027; 99212

== ENCOUNTER 2023-08-25 09:15 | Outpatient (REF) | payer MEDICAID, SELFPAY ==
[2023-08-25 11:25] LABS: HCG Quantitative 105824 mIU/mL
== END 2023-08-25 09:16 | disposition home or self-care (01) ==
LOC: HO.LAB 09:15
PROVIDERS: Absent Provider Advanced Practice Midwife; Visit Provider Obstetrics & Gynecology
DX: Z78.9 Other specified health status (principal)
CPT/HCPCS: 36415; 84702

== ENCOUNTER 2023-09-13 12:40 | Outpatient (REF) | payer OTHER, SELFPAY ==
--- NOTE | ~2023-09-13 | US_ITS ---
EXAMINATION: US OBSTETRICAL ULTRASOUND CLINICAL INFORMATION: follow-up. COMPARISON: Pelvic ultrasound 07/01/2022. LMP: 07/09/2023. Gestational age by maternal dates is 9 weeks and 3 days. Estimated date of delivery by maternal dates is 04/14/2025. TECHNIQUE: Ultrasound of the maternal pelvis is performed using transabdominal and transvaginal transducers. Transvaginal imaging is performed due to inadequate visualization transabdominally. M-mode Doppler is also performed. FINDINGS: There is a single intrauterine gestational sac with visible yolk sac, embryo/fetus, and cardiac activity. There is no significant subchorionic hemorrhage or hematoma. HR: 174 beats per minute. CRL (crown rump length): 4.01 cm (11 weeks +/- 4 days). TERRY (estimated date of delivery): 04/03/2025 +/- 4 days. MATERNAL ADNEXA: The right maternal ovary measures 3.7 x 2.2 x 2 cm. The left maternal ovary measures 4.1 x 2.1 x 2.3 cm. There is no significant maternal adnexal mass. No maternal pelvic ascites. US/US OB <= 14 weeks fetus IMPRESSION: 1. Single intrauterine gestation with ultrasound gestational age of 11 weeks +/- 4 days. There is a discrepancy in between the calculated gestational age by ultrasound and the calculated gestational age by LMP of approximately 2 weeks, recommend correlation with certainty of the LMP dates. 2. Estimated date of delivery is 04/03/2025 +/- 4 days. 3. No maternal adnexal mass or pelvic ascites.
== END 2023-09-13 12:41 | disposition home or self-care (01) ==
LOC: HO.US 12:40
PROVIDERS: Visit Provider Advanced Practice Midwife
DX: Z34.91 Encounter for supervision of normal pregnancy, unspecified, first trimester (principal); Z3A.09 9 weeks gestation of pregnancy
CPT/HCPCS: 76801

== ENCOUNTER 2023-10-04 08:53 | Outpatient (REF) | payer OTHER, SELFPAY ==
[2023-10-04 10:41] LABS: Hematocrit 34.8 % (37.0-47.0); Hemoglobin 11.9 g/dl (12.0-16.0); Mean Corpuscular HGB Conc 34.2 g/dl (31.0-35.0); Mean Corpuscular Hemoglobin 28.5 pg (27.0-33.0); Mean Corpuscular Volume 83.5 fL (80.0-98.0); Mean Platelet Volume 9.4 fL (9.4-12.3); Platelet Count 250 X10*3/uL (160-400); Red Blood Count 4.17 X10*6/uL (4.20-5.50); Red Cell Distribution Width 13.1 % (11.0-16.0); White Blood Count 9.6 X10*3/uL (4.8-10.8)
[2023-10-04 10:52] LABS: Sickle Cell Scr NEGATIVE (NEGATIVE)
[2023-10-04 12:04] LABS: Amphetamine Screen Urine Not Detected (Not Detect); Barbiturates, Urine Not Detected (Not Detect); Benzodiazepines Screen Urine Not Detected (Not Detect); Buprenorphine Scr Not Detected (Not Detect); Cannabinoid Screen Urine POSITIVE (Not Detect); Cocaine Screen Urine Not Detected (Not Detect); Fentanyl, urine Not Detected (Not Detect); Methadone Screen, Urine Not Detected (Not Detect); Opiate Screen Urine Not Detected (Not Detect); Oxycodone Screen Urine Not Detected (Not Detect); Phencyclidine Screen Urine Not Detected (Not Detect)
[2023-10-05 03:58] LABS: Syphilis Screen Nonreactive (Nonreactive)
[2023-10-05 04:27] LABS: HBsAGNum1 0.18 S/CO (0.00-0.99); HIV AB/AG Nonreactive (Nonreactive); HIV Num 1 0.06 S/CO (0.00-0.99); Hepatitis B Surface Antigen Negative (Negative); ~HepC Num1 0.09 S/CO (0.00-0.79); ~Hepatitis C Antibody Nonreactive (Nonreactive)
[2023-10-05 18:03] LABS: Rubella IgG Antibody 3.18 Index
[2023-10-19 17:33] LABS: CF Ethnicity NG; Cystic Fibrosis NEGATIVE (NEGATIVE)
== END 2023-10-04 08:54 | disposition home or self-care (01) ==
LOC: HO.LAB 08:53
PROVIDERS: Advanced Practice Midwife; PCP Physician Assistant; Visit Provider Advanced Practice Midwife
DX: Z34.92 Encounter for supervision of normal pregnancy, unspecified, second trimester (principal); Z3A.14 14 weeks gestation of pregnancy
CPT/HCPCS: 80307; 81220; 85027; 85660; 86762; 86780; 86787; 86803; 86850; 86900; 86905; 87086; 87340; 87389; 99212

== ENCOUNTER 2023-10-04 08:53 | Outpatient (AMB) | payer OTHER, SELFPAY ==
--- NOTE | 2023-10-04 08:59 | AM.OFFVISNUR ---
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
[2023-10-04 09:00] VITALS: BMI 27.8
--- NOTE | 2023-10-04 09:01 | MHC.OFFVISPN ---
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 Allergies No Known Allergies [No Known Allergies*] Allergy (Verified 10/04/23 09:01) Medication List - Last Reconciled 10/04/23 by Frannie Miranda LPN PNV,calcium 86-syjl-bekyo acid 27 mg iron- 1 mg ( Vitamins Plus Low Iron) 1 tab PO DAILY 90 days Is last menstrual period known: Yes Last menstrual period: 07/09/23 Post menopausal: No Patient : Yes Do you need a note to return to daycare/school/sports/work: No PFSH Medical History Fibroadenoma of right breast No known health problems Surgical History S/P laparoscopic cholecystectomy Family History Maternal Aunt Status post breast lumpectomy Social History Household Members: Family Both parents involved: Yes Housing: Apartment Do you presently have visiting nurse or other home services: No Alcohol intake: never Patient Tobacco Use Status: Never used Tobacco Substance Use Type: Marijuana service: No Current occupational status: employed Sexual orientation: Straight/Heterosexual Gender identity: Female Female Reproductive History Menstrual Age of Menarche: 8 Duration of menses: 3-5 days Date of last menstrual period: 07/09/23 control method: none Total pregnancies: 3 Full term: 1 Premature: 0 Number of Living Children: 1 Ab induced: 0 Ab spontaneous: 1 Ectopics: 0 Multiple births: 0 Date of last pap smear: 02/11/21 History of abnormal pap smear: No History of STI: No History of abnormal mammogram: No History History 3 Elective abortions 0 Para 1 Spontaneous abortions 1 Hx # Term Pregnancies 1 Ectopic pregnancies 0 Hx # Pregnancies 0 Multiple births 0 Past Pregnancies Del. Date GA/Weeks Outcome Route Wt Inf Gender Labor Lindsey Anesthesia Location Provider Complicate 08/05/21 40 live - full term 3.629 kg Male 9 hours none [facility] none 07/29/22 8 spontaneous Education First Trimester Education Checklist Plans/Education - by Trimester Counseled: Yes HIV and other routine tests: discussed Infectious disease exposure: chicken pox immunity discussed and hepatitis risk discussed Influenza vaccine: discussed Nutrition and weight gain counseling: special diet: discussed Sexual activity: discussed Exercise: discussed Tobacco use: No Alcohol use: No Alcohol (Ask, Advise, Assess, Assist, and Arrange): discussed Use of any medications (including supplements, vitamins, herbs, or OTC drugs): discussed Substance use: No Substance use (Ask, Advise, Assess, Assist, and Arrange): discussed Environmental/home/work hazards: discussed Domestic violence: discussed Travel: discussed Seatbelt use: discussed Toxoplasmosis precautions (cats/raw meat): discussed Childbirth education/discussion: symptoms education/discussion and group B strep education/discussion Risk factors identified by history: discussed Testing education: cystic fibrosis testing education done, sickle cell testing education done, thalassemia testing education done and group B strep education danger signs: Yes education packet: Child education class information, symptoms, vitamins and iron, diet and weight gain, fish and mercury intake, listeriosis prevention, caffeine use, eating disorder history, exercise and activity, work issues, sexual activity, x-ray exposure, medication use, toxoplasmosis precautions, sauna/hot tub use, dental care and HIV education and counseling Mental health: discussed Anticipated course of care: discussed Indications for ultrasound: discussed Health center information: nature of practice discussed, personnel described, visit schedule reviewed, no show policy reviewed, ultrasounds policy reviewed, coverage 24 hours a day, participation of father in care and office visits and signs of miscarriage reviewed Questionnaire History History : 3 Visit TERRY Calculator Estimated Delivery Date Method Current WG Current Estimate 03/30/24 Ultrasound #1 14w 4d Other Estimates 04/14/24 LMP (Certain) 12w 3d Expected Delivery Route/Plan Specific Issues/Plans late to care, RH negative, Rhogam @ 28 wks OB Visit Log Initial Weight: 72.121 kg Date <del>?</del> EGA Weight Gest Week Fundal Ht Present FHR move Efface % Edema BP PrePreg We Weight GTT <del>?</del> Glucose LV Protein Blood Type 10/04/23 <del>?</del> 14w 4d 73.595 kg (+1.474 kg) 73.595 kg <del>?</del> Notes Visit Date: 10/04/23 Last Updated by: Frannie Miranda LPN Chetna is here to day for her Nurse intake. LMP 07/09/23 TERRY 04/14/24. U/S on 09/13/23 = TERRY of 04/03/24. 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 Pt lives at home with her 2 yr. old son. Discussed healthy food choices and to try to eat 3 meals a day with healthy snacks. Pt reports she does eat well including fruits and veggies, and Beef and chicken. Pt stopped smoking MJ when she had her positive test. She is aware UDS will be done with her labs. Pt missed her NT u/s due to late being seen. Discussed Panorama testing and Horizon. Discussed survey to be done around 20 wks gestation. scheduled at 20 weeks. She is aware her u/s will be done at [facility] and delivery also. She denies any FH of diabetes. Chetna does plan on again. Discussed how to reach MD after hours and not to go to [facility], but to [facility], for any related issues. Pt sent for her labs today. OP PE is scheduled for 10/06/23. folder with info was discussed and given to pt. 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 Patient's age 35 years or older as of estimated date of delivery: No 2. Thalassemia (Korean, Ukrainian, Mediterranean, or Background); MCV less than 80: No 3. Neural Tube Defect (Meningomyelocele, Spina Bifida, or Anencephaly): No 4. Congenital Heart Defect: No 5. Down Syndrome: Yes (Pts brother) 6. Rell-Sachs (Ashkenazi Anglican, Cajun, Burmese [place] Rican): No 7. Norah Disease (Ashkenazi Anglican): No 8. Familial Dysautonomia (Ashkenazi Anglican): No 9. Sickle Cell Disease or Trait (): Yes 10. Hemophilia or other blood disorders: No 11. Muscular Dystrophy: No 12. Cystic Fibrosis: No 13. [place]'s Chorea: No 14. Intellectual disability/Autism: No 15. Other inherited genetic or chromosomal disorder: No 16. Maternal Metabolic Disorder (EG,TYPE 1 Diabetes, PKU): No 17. Patient or baby's father had a child with defects not listed above: No 18. Recurrent loss or a stillbirth: No 19. Medications (including supplements, vitamins, herbs or otc drugs)/illicit/recreational drugs/alcohol since last menstrual period: Yes 20. Any other: No Infection History 1. Live with someone with TB or exposed to TB: No 2. Rash or viral illness since last menstrual period: No 3. Hepatitis B,C: No Other (see comments) Source: [employer] Coding Level of Care Code Established Pt Serge Patient Type Established History Problem Focused Exam Problem Focused Medical Decision Making Low Complexity Time Spent (min) 60 Assessment & Plan Assessment & Plan Orders: Orders Hepatitis B Surface Antigen Today Z32. - Encounter for test, result positive Hepatitis C Antibody Today Z32. - Encounter for test, result positive Urine Culture Today Z32. - Encounter for test, result positive Drug Screen Urine Today Z32. - Encounter for test, result positive Screen Today Z32. - Encounter for test, result positive US OB /maternal detail Today Z32. - Encounter for test, result positive Sickle Cell Scr Today Z34.92 - Encounter for supervision of normal , unspecified, second trimester Complete Blood Count no Diff Today Z32. - Encounter for test, result positive Syphilis Screen Today Z32. - Encounter for test, result positive Varicella IgG Antibody Today Z32. - Encounter for test, result positive HIV Ab/Ag Today Z32. - Encounter for test, result positive Rubella IgG Antibody Today . - Encounter for test, result positive CF Carrier Screen Today . - Encounter for test, result positive
== END 2023-10-04 09:45 | disposition home or self-care (01) ==
LOC: HO.HWS 08:53
PROVIDERS: PCP Physician Assistant; Visit Provider Advanced Practice Midwife
DX: Z34.90 Encounter for supervision of normal pregnancy, unspecified, unspecified trimester (principal)
CPT/HCPCS: 25942

== ENCOUNTER 2023-10-06 09:49 | Outpatient (AMB) | payer OTHER, SELFPAY ==
--- NOTE | 2023-10-06 10:00 | MHC.OFFVISPN ---
Intake Vital Signs 10/06/23 10:04 Height 5 ft 4 in Weight 161 lb BMI 27.6 BP 110/60 Intake Visit Reasons: OB/PE Automotive Specialty Technician Required: No Information Interpreted: clinical only Data Management: Data Management Present Allergies No Known Allergies [No Known Allergies*] Allergy (Verified 10/06/23 10:00) Medication List - Last Reconciled 10/06/23 by Patrica Jiang CNM ferrous sulfate 325 mg PO DAILY 30 days PNV,calcium 73-[id number]-[id number] acid 27 mg iron- 1 mg ( Vitamins Plus Low Iron) 1 tab PO DAILY 90 days PFSH Medical History Fibroadenoma of right breast No known health problems Surgical History S/P laparoscopic cholecystectomy Family History Maternal Aunt Status post breast lumpectomy Social History Household Members: Family Both parents involved: Yes Housing: Apartment Do you presently have visiting nurse or other home services: No Alcohol intake: never Patient Tobacco Use Status: Never used Tobacco Substance Use Type: Marijuana service: No Current occupational status: employed Sexual orientation: Straight/Heterosexual Gender identity: Female Female Reproductive History Menstrual Age of Menarche: 8 History History 3 Elective abortions 0 Para 1 Spontaneous abortions 1 Hx # Term Pregnancies 1 Ectopic pregnancies 0 Hx # Pregnancies 0 Multiple births 0 Past Pregnancies Del. Date GA/Weeks Outcome Route Wt Inf Gender Labor Lindsey Anesthesia Location Provider Complicate 08/05/21 40 live - full term 8 lb Male 9 hours none [facility] none 07/29/22 8 spontaneous Visit TERRY Calculator Estimated Delivery Date Method Current WG Current Estimate 03/30/24 Ultrasound #1 14w 6d Other Estimates 04/14/24 LMP (Certain) 12w 5d Expected Delivery Route/Plan Specific Issues/Plans late to care, RH negative, Rhogam @ 28 wks. On 10/05/23 @ 15:24 Frannie Miranda Wrote To Marla De La O (2) TC to Chetna , she was informed that she will need transfer to [facility] due to a positive Little ANTI C antibody. Explained this to pt to the best of my ability, and informed her that a referral is being placed for a consult with [facility] at [facility] to discuss findings. Labs and chart faxed to [facility]. Call to [facility] for transfer of care and chart faxed to [facility] for expedited transfer. pt aware to keep her obPE appt per Marla De La O CNM On 10/05/23 @ 13:59 System Wrote To Marla De La O (2) Results added. Task updated. On 10/05/23 @ 13:44 Marla De La O Wrote To OB Nurse She will need a transfer to [facility] due to the little C antibody risks to fetus OB Visit Log Initial Weight: 159 lb Date <del>?</del> EGA Weight Gest Week Fundal Ht Present FHR move Efface % Edema BP PrePreg We Weight GTT <del>?</del> Glucose LV Protein Blood Type 10/04/23 <del>?</del> 14w 4d 162 lb 4 oz (+3 lb 4 oz) 162 lb 4 oz <del>?</del> 10/06/23 <del>?</del> 14w 6d 161 lb (+2 lb) 14 150 110/60 161 lb <del>?</del> Notes Visit Date: 10/06/23 Last Updated by: Patrica Jiang CNM On 10/05/23 @ 15:24 Frannie Miranda Wrote To Marla De La O (2) TC to Chetna , she was informed that she will need transfer to [facility] due to a positive Little ANTI C antibody. Explained this to pt to the best of my ability, and informed her that a referral is being placed for a consult with MF at [facility] to discuss findings. Labs and chart faxed to [facility]. Call to access for transfer of care and chart faxed to [facility] for expedited transfer. pt aware to keep her obPE appt per Marla De La O CNM On 10/05/23 @ 13:59 System Wrote To Marla De La O (2) Results added. Task updated. On 10/05/23 @ 13:44 Marla De La O Wrote To OB Nurse She will need a transfer to [facility] due to the little C antibody risks to fetus Patient is scheduled for new OB physical 10/06/2023 at [facility]. I entered the room to find the patient teary saying she is scared she does not know what is going on with her baby and she was told she would hepatitis C and she is worried and does not understand it and she was told she was high-risk and had to go to [facility]. Chart reviewed to find the above in the activity section patient does not have hepatitis C. Issues with the blood type were noted and reviewed with the patient and she does remember being told about this sometime in the last that it would be an issue this time as well. Discussed the reasons for transfer so that there can be the best surveillance possible. Patient feeling more relieved during the visit she did receive a phone call from [facility] but could not accepted and will call them right back about that appointment she says she has an appointment for her anatomy scan and she also says she was told that she would sign the paper to get the blood test for the genetic screening and (gender). Physical exam done all within normal limits. Cervix long thick closed pink smooth healthy with normal mucus. FHT strong at 150. Patient will be transferred to [facility] for care and delivery from here records to be sent. Reviewed stressors in and support reviewed diet she thinks she is drinking more so than she thinks is morrison and awill work on that Visit Date: 10/04/23 Last Updated by: Frannie Miranda LPN Chetna is here to day for her Nurse intake. LMP 07/09/23 TERRY 04/14/24. U/S on 09/13/23 = TERRY of 04/03/24. 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 Pt lives at home with her 2 yr. old son. Discussed healthy food choices and to try to eat 3 meals a day with healthy snacks. Pt reports she does eat well including fruits and veggies, and Beef and chicken. Pt stopped smoking MJ when she had her positive test. She is aware UDS will be done with her labs. Pt missed her NT u/s due to late being seen. Discussed Panorama testing and Horizon. Discussed survey to be done around 20 wks gestation. scheduled at 20 weeks. She is aware her u/s will be done at [facility] and delivery also. She denies any FH of diabetes. Chetna does plan on again. Discussed how to reach MD after hours and not to go to [facility], but to [facility], for any related issues. Pt sent for her labs today. OP PE is scheduled for 10/06/23. folder with info was discussed and given to pt. Exam Const Constitutional General: cooperative, healthy appearing, comfortable, no acute distress and well developed Nutritional Appearance: average body habitus and well nourished Constitutional Limitations: no limitations [facility] Head: normocephalic and other Teeth and gingiva: dentition normal and gingiva normal Neck Thyroid: Thyroid normal Chest Breast/axilla inspection: normal inspection of the breasts and Other (nipples brayden well) Breast/axilla palpation: normal palpation of the breasts and normal palpation of the axillae Resp Effort & Inspection: normal respiratory effort Auscultation: clear to auscultation bilaterally Cardio Heart sounds: S1 normal heart sound present and S2 normal heart sound present GI Inspection (GI): normal to inspection General Exam: Yes no CVA tenderness External Female Exam: normal external appearance Speculum exam - vagina: normal appearance of the vagina, normal discharge and other (normal appearance to vaginal secretions) Speculum Exam - Cervix: normal appearance of the cervix Bimanual exam- vagina & uterus: normal bimanual exam, uterine size normal (consistant w dating), consistency normal (consitent w gestational age), uterine mobility normal and uterine shape normal (c/w gestational age) Bimanual Exam- Adnexa, other: normal adnexae, no masses and normal (teaching re kegels done) Pelvic Support: normal (teaching re kegels done) OB/external & speculum: external exam normal Manual OB Exam: other (cervix =long/thick/closed/ and consistent w obstetric history) Results Reviewed Results Reviewed: Name: Chetna Morillo Age/Sex: 22/F : 2000 Unit#: [id number] Attend Dr: Patrica Jiang CNM Re10/04/23 Status: DEP REF Location: .LAB Disch: SPEC : [id number] GORGE: 10/04/23 STATUS: COMP REQ : [id number] RECD: 10/04/[address]: Marla De La O CNM COMP: 10/05/23-8 ENTERED: 10/04/23-[address] [facility] [address]: Carson Hawley PA-C, Mary CNM ORDERED: Anti-HCV, HIV Ab/Ag, HBsAG Test Result Flag Reference Anti-HCV Nonreactive Nonreactive Antibodies to HCV not detected; does not exclude early acute HCV infection. HIV AB/AG Nonreactive Nonreactive HIV-1 p24 Ag and/or HIV-1/HIV-2 Ab not detected. A test result that is nonreactive does not exclude the possibility of exposure to or infection with HIV-1 and/or HIV-2. Nonreactive results in this assay for individuals with prior exposure to HIV-1 and/or HIV-2 may be due to antigen and antibody levels that are below the limit of detection of this assay. The [employer] HIV Ag/Ab Combo assay result and supplemental assay results should be interpreted in conjunction with the patient's clinical presentation, history and other laboratory results. If the results are inconsistent with clinical evidence, additional testing is suggested to confirm the result. HBsAG Negative Negative kwadwo: Chetna Morillo Age/Sex: 22/F : 2000 Unit#: [id number] Attend Dr: Patrica Jiang [facility] Re10/04/23 Status: DEP REF Location: .LAB Disch: SPEC #: [id number] GORGE: 10/04/23 STATUS: COMP REQ #: [id number] RECD: 10/04/23-[address]: Marla De La O [facility] COMP: 10/04/23 ENTERED: 10/04/[address]: Carson Hawley PA-C, Mary [facility] ORD PRODS: (NO ORDERED PRODUCTS) ORD TESTS: PRENS, Ag ID Test Result Flag Reference Screen Blood Type A Pos Patient previously tested as A Negative. Current methodology with anti D reagent detects most weak D and partial D antigen expressions. Sample to be sent for molecular testing to determine D Genotype for RHD variant. ANTIBODY SCREEN NEGATIVE Antigen Identification C Ag - POSITIVE, E Ag - NEGATIVE, c Ag - POSITIVE, e Ag - POSITIVE TITER Test not performed Negative antibody screen, Titer not indicated. 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 Code(s): O36.0990 - Maternal care for other rhesus isoimmunization, unspecified trimester, not applicable or unspecified Category: Medical
[2023-10-06 10:04] VITALS: BP 110/60; BMI 27.6
== END 2023-10-06 11:20 | disposition home or self-care (01) ==
LOC: HO.HWSM 09:49
PROVIDERS: PCP Physician Assistant; Visit Provider Advanced Practice Midwife
DX: Z34.92 Encounter for supervision of normal pregnancy, unspecified, second trimester (principal); O36.0990 Maternal care for other rhesus isoimmunization, unspecified trimester, not applicable or unspecified; Z78.9 Other specified health status
CPT/HCPCS: 25942; 99214

== ENCOUNTER 2023-10-06 09:49 | Outpatient (REF) | payer OTHER, SELFPAY ==
[2023-10-07 05:11] LABS: CT PCR NOT DETECTED (Not Detect.); NG PCR NOT DETECTED (Not Detect.)
[2023-10-07 13:03] LABS: Bacterial Vaginosis PCR NEGATIVE (Negative); Candida Group PCR NOT DETECTED (Not Detect); Candida glab krusei PCR NOT DETECTED (Not Detect); Trichomonas vaginalis PCR NOT DETECTED (Not Detect)
== END 2023-10-06 09:50 | disposition home or self-care (01) ==
LOC: HO.LAB 09:49
PROVIDERS: PCP Physician Assistant; Visit Provider Advanced Practice Midwife
DX: Z01.419 Encounter for gynecological examination (general) (routine) without abnormal findings (principal); O36.0920 Maternal care for other rhesus isoimmunization, second trimester, not applicable or unspecified; O26.892 Other specified pregnancy related conditions, second trimester; N89.8 Other specified noninflammatory disorders of vagina; Z78.9 Other specified health status; Z11.3 Encounter for screening for infections with a predominantly sexual mode of transmission; Z3A.14 14 weeks gestation of pregnancy
CPT/HCPCS: 0352U; 0353U; 36415; 87625; 88175; 99212